=== PATIENT | female | born 1950 | race Caucasian/White ===

== ENCOUNTER 2016-06-16 18:38 | Inpatient (IN) | payer MEDICARE, MEDICAID ==
[~2016-06-16] VITALS: Ht 144.8 cm; Wt 125.6 kg
[~2016-06-16 18:38] MED LIST: AMBIEN PO; DOCU-137 PO; GABA300C8 PO; GABA800T97 PO; HYDR-2598 PO; LIDO5DIS21 TOP; LISI10TA6 PO; METF-312 PO; OME20GT PO; PAROXETINE PO; TRIA50CA40 PO
[2016-06-16 19:11] LABS: Basophils # (auto) 0.1 uL; Basophils % (auto) 0.7 % (0.0-2.0); Eosinophils # (auto) 0.2 uL; Hematocrit 36.1 % (36.0-46.0); Hemoglobin 12.1 g/dL (12.2-16.2); Lymphocytes % (auto) 17.3 % (10.0-50.0); Mean Corpuscular Hemoglobin 30.4 pg (28.0-32.0); Mean Corpuscular Hgb Conc. 33.6 g/dL (32.0-36.0); Mean Corpuscular Volume 90.5 fL (80.0-100.0); Mean Platelet Volume 6.5 fL (7.4-10.4); Monocytes # (auto) 0.5 uL; Monocytes % (auto) 4.7 % (0.0-12.0); Neutrophils # (auto) 8.7 uL; Neutrophils % (auto) 75.3 % (37.0-80.0); Platelet Count (auto) 391 10^3/uL (140-450); Red Cell Distribution Width 13.4 % (11.6-16.0); White Blood Cell 11.6 10^3/uL (4.4-10.8)
[2016-06-16 19:36] LABS: Albumin 3.3 g/dL (3.4-5.0); Anion Gap 8 (5-15); Blood Urea Nitrogen 23 mg/dL (7-18); Calcium 8.8 mg/dL (8.5-10.1); Carbon Dioxide 28 mmol/L (21-32); Chloride 106 mmol/L (98-107); Glucose 140 mg/dL (74-106); Potassium 3.9 mmol/L (3.5-5.1); Sodium 142 mmol/L (136-145)
[2016-06-16 19:39] LABS: Aspartate Aminotransferase 11 U/L (15-37); GFR African American 61 mL/min; GFR Non-African American 50 mL/min
[2016-06-16 19:44] LABS: Alkaline Phosphatase 93 U/L (45-117); Bilirubin, Total 0.5 mg/dL (0.2-1.0); Total Protein 7.4 g/dL (6.4-8.2)
[2016-06-16 21:02] LABS: Urine RBC None Seen /hpf (0 - 4)
[2016-06-16 21:14] LABS: Urine Bilirubin Negative (Negative); Urine Blood Negative /uL (Negative); Urine Color Yellow (Yellow); Urine Glucose Normal (Normal); Urine Ketone Negative (Negative); Urine Nitrite Negative (Negative); Urine Urobilinogen Normal (Negative)
[2016-06-17] MEDS ORDERED: cefTRIAXone 1GM/50ML D5W 50 ML IV ONE (06:45)
[2016-06-17] MEDS ORDERED: metroNIDAZOLE 500MG/100ML 100 ML IV ONE (06:45)
[2016-06-17] MEDS ORDERED: HYDROmorphone HCL 2 MG/ML VL IV ONE (07:15)
[2016-06-17] MEDS ORDERED: ONDANSETRON HCL 4 MG/2 ML VIAL IV ONE (07:15)
[2016-06-17] MEDS ORDERED: DEXTROSE (50%) 50ML SYRG IV PRN (07:30)
[2016-06-17] MEDS ORDERED: ACETAMINOPHEN 325 MG TAB PO PRN (07:30)
[2016-06-17] MEDS ORDERED: MORPHINE SULF INJ 2 MG/ML SYRINGE 1ML IV PRN (07:30)
[2016-06-17 08:38] VITALS: BP 132/51
[2016-06-17] MEDS: METOPROLOL SUCCINATE XL 50 MG TAB PO SCH (09:05)
[2016-06-17] MEDS: ENOXAPARIN SOD 40 MG/0.4 ML SYRINGE SC SCH (09:32)
[2016-06-17] MEDS: PANTOPRAZOLE SODIUM 40 MG/10 ML VIAL IV SCH (09:32)
[2016-06-17] MEDS ORDERED: FUROSEMIDE 40 MG TAB PO SCH (10:00)
[2016-06-17] MEDS ORDERED: POTASSIUM CHL 10 Meq TABLET PO SCH (10:00)
[2016-06-17] MEDS: ACCU-CHEK COMFORT CURVE STRIP VI SCH ×2 (11:11→17:58)
[2016-06-17] MEDS: InsuLIN REG 1unit/0.01ml Soln (100units/ml) SC SCH ×2 (11:13→17:59)
[2016-06-17 12:30] VITALS: BP 146/83
[2016-06-17] MEDS: HYDROcodone-ACET 5/325MG TAB PO PRN (14:10)
[2016-06-17] MEDS: HYDROmorphone HCL 2 MG/ML VL IV PRN ×2 (14:40→20:01)
[2016-06-17] MEDS: SODIUM CHLORIDE 0.9% 1,000 ML IV SCH (16:14)
[2016-06-17 16:45] VITALS: BP 126/65
[2016-06-17] MEDS: metroNIDAZOLE 500MG/100ML 100 ML IV SCH (17:31)
[2016-06-17 20:00] VITALS: BP 116/59
[2016-06-17] MEDS: ATORVASTATIN 20 MG TAB PO SCH (21:38)
[2016-06-17 21:46] VITALS: BP 116/59
[2016-06-18] MEDS: ACCU-CHEK COMFORT CURVE STRIP VI SCH ×5 (00:09→23:34)
[2016-06-18] MEDS: metroNIDAZOLE 500MG/100ML 100 ML IV SCH ×4 (00:09→23:34)
[2016-06-18] MEDS: HYDROmorphone HCL 2 MG/ML VL IV PRN ×4 (01:04→21:26)
[2016-06-18 03:42] VITALS: BP 116/99
[2016-06-18] MEDS: SODIUM CHLORIDE 0.9% 1,000 ML IV SCH ×2 (05:14→16:44)
[2016-06-18 05:24] VITALS: BP 109/58
[2016-06-18 05:41] LABS: Basophils # (auto) 0 uL; Basophils % (auto) 0.3 % (0.0-2.0); Eosinophils # (auto) 0.2 uL; Eosinophils % (auto) 2.6 % (0.0-7.0); Hematocrit 31.4 % (36.0-46.0); Hemoglobin 10.5 g/dL (12.2-16.2); Lymphocytes # (auto) 1.1 uL; Lymphocytes % (auto) 13.9 % (10.0-50.0); Mean Corpuscular Hemoglobin 30.4 pg (28.0-32.0); Mean Corpuscular Hgb Conc. 33.4 g/dL (32.0-36.0); Mean Platelet Volume 6.6 fL (7.4-10.4); Monocytes # (auto) 0.7 uL; Monocytes % (auto) 8.7 % (0.0-12.0); Neutrophils % (auto) 74.5 % (37.0-80.0); Platelet Count (auto) 326 10^3/uL (140-450); Red Cell Distribution Width 13.7 % (11.6-16.0); White Blood Cell 8.1 10^3/uL (4.4-10.8)
[2016-06-18] MEDS: InsuLIN REG 1unit/0.01ml Soln (100units/ml) SC SCH ×5 (06:00→23:34)
[2016-06-18 06:14] LABS: BUN/Creatinine Ratio 21.4; Calcium 8.2 mg/dL (8.5-10.1); Potassium 3.9 mmol/L (3.5-5.1)
[2016-06-18] MEDS: cefTRIAXone 1GM/50ML D5W 50 ML IV SCH (06:34)
[2016-06-18 09:00] VITALS: BP 143/78
[2016-06-18] MEDS: METOPROLOL SUCCINATE XL 50 MG TAB PO SCH (10:00)
[2016-06-18] MEDS: PANTOPRAZOLE SODIUM 40 MG/10 ML VIAL IV SCH (10:42)
[2016-06-18] MEDS: ENOXAPARIN SOD 40 MG/0.4 ML SYRINGE SC SCH (10:42)
[2016-06-18 13:00] VITALS: BP 104/49
[2016-06-18 17:00] VITALS: BP 149/74
[2016-06-18] MEDS: ONDANSETRON HCL 4 MG/2 ML VIAL IV PRN ×2 (17:00→21:26)
[2016-06-18] MEDS: ATORVASTATIN 20 MG TAB PO SCH (21:30)
[2016-06-18 22:00] VITALS: BP 143/93
[2016-06-18] MEDS: ZOLPIDEM TARTRATE 5 MG TAB PO PRN (23:36)
[2016-06-19] MEDS: ONDANSETRON HCL 4 MG/2 ML VIAL IV PRN ×5 (01:28→20:34)
[2016-06-19] MEDS: HYDROmorphone HCL 2 MG/ML VL IV PRN ×5 (01:28→20:34)
[2016-06-19] MEDS: SODIUM CHLORIDE 0.9% 1,000 ML IV SCH (04:50)
[2016-06-19 05:00] VITALS: BP 137/78
[2016-06-19] MEDS: InsuLIN REG 1unit/0.01ml Soln (100units/ml) SC SCH ×4 (05:57→21:01)
[2016-06-19] MEDS: ACCU-CHEK COMFORT CURVE STRIP VI SCH ×3 (05:57→17:36)
[2016-06-19 06:14] LABS: Basophils # (auto) 0 uL; Basophils % (auto) 0.3 % (0.0-2.0); Eosinophils # (auto) 0.2 uL; Eosinophils % (auto) 3.7 % (0.0-7.0); Hematocrit 31.6 % (36.0-46.0); Hemoglobin 10.3 g/dL (12.2-16.2); Lymphocytes # (auto) 1.4 uL; Lymphocytes % (auto) 23.5 % (10.0-50.0); Mean Corpuscular Hemoglobin 30.3 pg (28.0-32.0); Mean Corpuscular Hgb Conc. 32.6 g/dL (32.0-36.0); Mean Corpuscular Volume 92.9 fL (80.0-100.0); Mean Platelet Volume 6.5 fL (7.4-10.4); Monocytes # (auto) 0.4 uL; Monocytes % (auto) 6.8 % (0.0-12.0); Neutrophils # (auto) 3.8 uL; Neutrophils % (auto) 65.7 % (37.0-80.0); Platelet Count (auto) 276 10^3/uL (140-450); Red Cell Distribution Width 13.3 % (11.6-16.0); White Blood Cell 5.9 10^3/uL (4.4-10.8)
[2016-06-19] MEDS: cefTRIAXone 1GM/50ML D5W 50 ML IV SCH (06:35)
[2016-06-19 07:03] LABS: Calcium 8.4 mg/dL (8.5-10.1); Potassium 4.2 mmol/L (3.5-5.1)
[2016-06-19] MEDS: metroNIDAZOLE 500MG/100ML 100 ML IV SCH ×2 (07:39→16:59)
[2016-06-19] MEDS ORDERED: GASTROGRAFIN 30 ML SOL ONE ×2 (08:35)
[2016-06-19] MEDS ORDERED: PPN PER PHARMACY 0 ML IV SCH (08:45)
[2016-06-19 09:00] VITALS: BP 158/74
[2016-06-19 09:25] LABS: Magnesium 2.2 mg/dL (1.6-2.6); Phosphorus 2.9 mg/dL (2.5-4.90)
[2016-06-19] MEDS: METOPROLOL SUCCINATE XL 50 MG TAB PO SCH (10:00)
[2016-06-19] MEDS: PANTOPRAZOLE SODIUM 40 MG/10 ML VIAL IV SCH (10:18)
[2016-06-19] MEDS: ENOXAPARIN SOD 40 MG/0.4 ML SYRINGE SC SCH (10:19)
[2016-06-19 13:00] VITALS: BP 146/73
[2016-06-19 16:38] LABS: INR 1.08 (0.9-1.15); Prothrombin Time 11.1 sec (9.37-12.3)
[2016-06-19] MEDS ORDERED: CLINIMIX PER PHARMACY IV NR ×6 (20:00)
[2016-06-19] MEDS: ATORVASTATIN 20 MG TAB PO SCH (21:37)
[2016-06-19] MEDS: ZOLPIDEM TARTRATE 5 MG TAB PO PRN (21:38)
[2016-06-19] MEDS: HYDROcodone-ACET 5/325MG TAB PO PRN (21:38)
[2016-06-19 22:00] VITALS: BP 142/95
[2016-06-20] MEDS: metroNIDAZOLE 500MG/100ML 100 ML IV SCH ×3 (00:31→22:06)
[2016-06-20] MEDS: ONDANSETRON HCL 4 MG/2 ML VIAL IV PRN ×4 (00:56→20:41)
[2016-06-20] MEDS: HYDROmorphone HCL 2 MG/ML VL IV PRN ×4 (00:56→20:41)
[2016-06-20 05:03] VITALS: BP 136/97
[2016-06-20] MEDS: HYDROcodone-ACET 5/325MG TAB PO PRN (05:56)
[2016-06-20] MEDS: InsuLIN REG 1unit/0.01ml Soln (100units/ml) SC SCH ×3 (05:57→18:00)
[2016-06-20] MEDS: ACCU-CHEK COMFORT CURVE STRIP VI SCH ×4 (06:12→18:00)
[2016-06-20 06:28] LABS: Albumin 2.9 g/dL (3.4-5.0); BUN/Creatinine Ratio 12.4; Bilirubin, Total 0.3 mg/dL (0.2-1.0); Calcium 8.8 mg/dL (8.5-10.1); Phosphorus 2.6 mg/dL (2.5-4.90); Total Protein 6.7 g/dL (6.4-8.2)
[2016-06-20] MEDS: cefTRIAXone 1GM/50ML D5W 50 ML IV SCH (07:00)
[2016-06-20] MEDS ORDERED: LACTULOSE 20Gm/30ML SOLN PO PRN (08:15)
[2016-06-20] MEDS ORDERED: LACTULOSE 20Gm/30ML SOLN PO ONE (08:15)
[2016-06-20 08:20] VITALS: BP 141/54
[2016-06-20] MEDS ORDERED: LIDOCAINE 1% HCL (LOCAL ANESTH.) INJ 20ML MDV ID ONE (10:45)
[2016-06-20 11:00] VITALS: BP 165/82
[2016-06-20] MEDS: METOPROLOL SUCCINATE XL 50 MG TAB PO SCH (12:24)
[2016-06-20] MEDS: LISINOPRIL 10 MG TAB PO SCH (12:24)
[2016-06-20] MEDS: PANTOPRAZOLE SODIUM 40 MG/10 ML VIAL IV SCH (12:25)
[2016-06-20] MEDS: ENOXAPARIN SOD 40 MG/0.4 ML SYRINGE SC SCH (12:25)
[2016-06-20 16:54] VITALS: BP 133/92
[2016-06-20 20:00] VITALS: BP 130/57
[2016-06-20] MEDS ORDERED: PPN PER PHARMACY IV NR ×8 (20:00)
[2016-06-20 22:00] VITALS: BP 130/57
[2016-06-20] MEDS: SODIUM CHLOR 0.9% PF (SALINE LOCK) 10ML VIAL IV SCH (22:07)
[2016-06-20] MEDS: ATORVASTATIN 20 MG TAB PO SCH (22:07)
[2016-06-21] MEDS: ACCU-CHEK COMFORT CURVE STRIP VI SCH ×4 (00:14→17:40)
[2016-06-21] MEDS: HYDROmorphone HCL 2 MG/ML VL IV PRN ×5 (03:49→22:36)
[2016-06-21] MEDS: ONDANSETRON HCL 4 MG/2 ML VIAL IV PRN ×5 (03:50→22:37)
[2016-06-21 05:00] VITALS: BP 120/64
[2016-06-21] MEDS: metroNIDAZOLE 500MG/100ML 100 ML IV SCH ×3 (05:24→22:30)
[2016-06-21] MEDS: InsuLIN REG 1unit/0.01ml Soln (100units/ml) SC SCH ×4 (05:43→17:40)
[2016-06-21 06:31] LABS: Calcium 8.6 mg/dL (8.5-10.1); Potassium 3.6 mmol/L (3.5-5.1)
[2016-06-21 06:34] LABS: BUN/Creatinine Ratio 11.1
[2016-06-21 06:37] LABS: Bilirubin, Total 0.3 mg/dL (0.2-1.0); Phosphorus 2.7 mg/dL (2.5-4.90); Total Protein 6.6 g/dL (6.4-8.2)
[2016-06-21] MEDS: cefTRIAXone 1GM/50ML D5W 50 ML IV SCH (07:00)
[2016-06-21] MEDS: PANTOPRAZOLE SODIUM 40 MG/10 ML VIAL IV SCH (08:57)
[2016-06-21] MEDS: ENOXAPARIN SOD 40 MG/0.4 ML SYRINGE SC SCH (08:57)
[2016-06-21] MEDS: METOPROLOL SUCCINATE XL 50 MG TAB PO SCH (08:58)
[2016-06-21] MEDS: LISINOPRIL 10 MG TAB PO SCH (08:58)
[2016-06-21 09:00] VITALS: BP 103/59
[2016-06-21] MEDS: SODIUM CHLOR 0.9% PF (SALINE LOCK) 10ML VIAL IV SCH ×2 (10:00→22:32)
[2016-06-21 13:00] VITALS: BP 148/75
[2016-06-21 17:15] VITALS: BP 152/89
[2016-06-21 20:00] VITALS: BP 122/60
[2016-06-21] MEDS ORDERED: PPN PER PHARMACY IV NR ×9 (20:00)
[2016-06-21 22:00] VITALS: BP 127/60
[2016-06-21] MEDS: ATORVASTATIN 20 MG TAB PO SCH (22:33)
[2016-06-22] VITALS (8 sets, daily range): BP systolic 110–143; BP diastolic 55–79
[2016-06-22] MEDS: ACCU-CHEK COMFORT CURVE STRIP VI SCH ×5 (00:32→22:20)
[2016-06-22] MEDS: HYDROmorphone HCL 2 MG/ML VL IV PRN ×3 (05:43→14:13)
[2016-06-22] MEDS: ONDANSETRON HCL 4 MG/2 ML VIAL IV PRN ×4 (05:43→22:20)
[2016-06-22] MEDS: metroNIDAZOLE 500MG/100ML 100 ML IV SCH ×3 (05:48→22:01)
[2016-06-22] MEDS: cefTRIAXone 1GM/50ML D5W 50 ML IV SCH (06:40)
[2016-06-22] MEDS: InsuLIN REG 1unit/0.01ml Soln (100units/ml) SC SCH ×5 (06:42→22:20)
[2016-06-22 06:43] LABS: Albumin 2.7 g/dL (3.4-5.0); BUN/Creatinine Ratio 12.2; Bilirubin, Total 0.2 mg/dL (0.2-1.0); Calcium 8.8 mg/dL (8.5-10.1); Magnesium 1.9 mg/dL (1.6-2.6); Phosphorus 3.1 mg/dL (2.5-4.90); Potassium 3.8 mmol/L (3.5-5.1); Total Protein 6.3 g/dL (6.4-8.2)
[2016-06-22] MEDS: METOPROLOL SUCCINATE XL 50 MG TAB PO SCH (09:46)
[2016-06-22] MEDS: LISINOPRIL 10 MG TAB PO SCH (09:47)
[2016-06-22] MEDS: PANTOPRAZOLE SODIUM 40 MG/10 ML VIAL IV SCH (09:47)
[2016-06-22] MEDS: ENOXAPARIN SOD 40 MG/0.4 ML SYRINGE SC SCH (09:47)
[2016-06-22] MEDS: SODIUM CHLOR 0.9% PF (SALINE LOCK) 10ML VIAL IV SCH ×2 (09:47→22:01)
[2016-06-22] MEDS: HYDROcodone-ACET 5/325MG TAB PO PRN ×2 (11:33→16:59)
[2016-06-22] MEDS ORDERED: TPN PER PHARMACY 0 ML IV SCH (11:45)
[2016-06-22] MEDS ORDERED: TPN PER PHARMACY IV NR ×10 (20:00)
[2016-06-22] MEDS: ATORVASTATIN 20 MG TAB PO SCH (22:01)
[2016-06-22] MEDS: ZOLPIDEM TARTRATE 5 MG TAB PO PRN (22:20)
[2016-06-23] MEDS: metroNIDAZOLE 500MG/100ML 100 ML IV SCH ×3 (05:14→22:24)
[2016-06-23] MEDS: ACCU-CHEK COMFORT CURVE STRIP VI SCH ×3 (05:37→17:38)
[2016-06-23] MEDS: InsuLIN REG 1unit/0.01ml Soln (100units/ml) SC SCH ×3 (05:37→17:38)
[2016-06-23 05:59] VITALS: BP 166/95
[2016-06-23 06:39] LABS: Albumin 2.8 g/dL (3.4-5.0); BUN/Creatinine Ratio 14.4; Bilirubin, Total 0.2 mg/dL (0.2-1.0); Calcium 8.8 mg/dL (8.5-10.1); Magnesium 1.9 mg/dL (1.6-2.6); Potassium 4.4 mmol/L (3.5-5.1); Total Protein 6.5 g/dL (6.4-8.2)
[2016-06-23] MEDS: cefTRIAXone 1GM/50ML D5W 50 ML IV SCH (06:58)
[2016-06-23 08:19] VITALS: BP 131/76
[2016-06-23] MEDS: SODIUM CHLOR 0.9% PF (SALINE LOCK) 10ML VIAL IV SCH ×2 (09:19→22:24)
[2016-06-23] MEDS: ENOXAPARIN SOD 40 MG/0.4 ML SYRINGE SC SCH (09:19)
[2016-06-23] MEDS: PANTOPRAZOLE SODIUM 40 MG/10 ML VIAL IV SCH (09:19)
[2016-06-23] MEDS: LISINOPRIL 10 MG TAB PO SCH (09:20)
[2016-06-23] MEDS: METOPROLOL SUCCINATE XL 50 MG TAB PO SCH (09:20)
[2016-06-23] MEDS: HYDROcodone-ACET 5/325MG TAB PO PRN ×2 (09:20→22:24)
[2016-06-23 11:53] VITALS: BP 148/81
[2016-06-23 16:20] VITALS: BP 135/77
[2016-06-23 20:00] VITALS: BP 138/69
[2016-06-23] MEDS ORDERED: TPN PER PHARMACY IV NR ×9 (20:00)
[2016-06-23 22:00] VITALS: BP 138/69
[2016-06-23] MEDS: ATORVASTATIN 20 MG TAB PO SCH (22:23)
[2016-06-24] VITALS (7 sets, daily range): BP systolic 107–155; BP diastolic 46–91
[2016-06-24] MEDS: ACCU-CHEK COMFORT CURVE STRIP VI SCH ×4 (00:39→18:12)
[2016-06-24] MEDS: InsuLIN REG 1unit/0.01ml Soln (100units/ml) SC SCH ×4 (06:00→18:00)
[2016-06-24] MEDS: metroNIDAZOLE 500MG/100ML 100 ML IV SCH ×3 (06:53→21:29)
[2016-06-24] MEDS: ONDANSETRON HCL 4 MG/2 ML VIAL IV PRN (06:55)
[2016-06-24] MEDS: cefTRIAXone 1GM/50ML D5W 50 ML IV SCH (07:31)
[2016-06-24] MEDS: SOD CHL 0.9%/ KCL 20MEQ 1,000 ML IV SCH ×2 (09:45→10:07)
[2016-06-24] MEDS: SODIUM CHLOR 0.9% PF (SALINE LOCK) 10ML VIAL IV SCH ×2 (10:06→21:29)
[2016-06-24] MEDS: ENOXAPARIN SOD 40 MG/0.4 ML SYRINGE SC SCH (10:06)
[2016-06-24] MEDS: PANTOPRAZOLE SODIUM 40 MG/10 ML VIAL IV SCH (10:06)
[2016-06-24] MEDS: LISINOPRIL 10 MG TAB PO SCH (10:07)
[2016-06-24] MEDS: METOPROLOL SUCCINATE XL 50 MG TAB PO SCH (10:07)
[2016-06-24] MEDS: PROMETHAZINE HCL 25 MG/ML 1ML IV PRN ×2 (14:40→19:00)
[2016-06-24] MEDS: HYDROmorphone HCL 2 MG/ML VL IV PRN (21:30)
[2016-06-24] MEDS: ATORVASTATIN 20 MG TAB PO SCH (21:30)
[2016-06-25] MEDS: ACCU-CHEK COMFORT CURVE STRIP VI SCH ×5 (00:10→23:53)
[2016-06-25] MEDS: PROMETHAZINE HCL 25 MG/ML 1ML IV PRN ×5 (00:11→22:43)
[2016-06-25] MEDS: SOD CHL 0.9%/ KCL 20MEQ 1,000 ML IV SCH ×2 (00:31→12:41)
[2016-06-25] MEDS: HYDROcodone-ACET 5/325MG TAB PO PRN ×2 (02:20→19:49)
[2016-06-25] MEDS: HYDROmorphone HCL 2 MG/ML VL IV PRN ×4 (04:20→22:43)
[2016-06-25 05:00] VITALS: BP 113/70
[2016-06-25] MEDS: InsuLIN REG 1unit/0.01ml Soln (100units/ml) SC SCH ×5 (05:55→23:53)
[2016-06-25] MEDS: metroNIDAZOLE 500MG/100ML 100 ML IV SCH ×3 (05:55→22:43)
[2016-06-25] MEDS: cefTRIAXone 1GM/50ML D5W 50 ML IV SCH (06:44)
[2016-06-25 09:00] VITALS: BP 134/70
[2016-06-25] MEDS: SODIUM CHLOR 0.9% PF (SALINE LOCK) 10ML VIAL IV SCH ×2 (10:07→22:43)
[2016-06-25] MEDS: METOPROLOL SUCCINATE XL 50 MG TAB PO SCH (10:07)
[2016-06-25] MEDS: LISINOPRIL 10 MG TAB PO SCH (10:08)
[2016-06-25] MEDS: PANTOPRAZOLE SODIUM 40 MG/10 ML VIAL IV SCH (10:08)
[2016-06-25] MEDS: ENOXAPARIN SOD 40 MG/0.4 ML SYRINGE SC SCH (10:08)
[2016-06-25] MEDS: PARoxetine 20 MG TAB PO SCH (10:42)
[2016-06-25 13:00] VITALS: BP 154/77
[2016-06-25 16:59] VITALS: BP 130/63
[2016-06-25 22:00] VITALS: BP 115/53
[2016-06-25] MEDS: ATORVASTATIN 20 MG TAB PO SCH (22:44)
[2016-06-26] MEDS: SOD CHL 0.9%/ KCL 20MEQ 1,000 ML IV SCH (02:56)
[2016-06-26] MEDS: HYDROmorphone HCL 2 MG/ML VL IV PRN (02:57)
[2016-06-26] MEDS: PROMETHAZINE HCL 25 MG/ML 1ML IV PRN (02:58)
[2016-06-26 04:55] VITALS: BP 140/73
[2016-06-26] MEDS: metroNIDAZOLE 500MG/100ML 100 ML IV SCH (05:18)
[2016-06-26] MEDS: InsuLIN REG 1unit/0.01ml Soln (100units/ml) SC SCH ×2 (05:25→11:55)
[2016-06-26] MEDS: ACCU-CHEK COMFORT CURVE STRIP VI SCH ×2 (05:25→11:56)
[2016-06-26] MEDS: cefTRIAXone 1GM/50ML D5W 50 ML IV SCH (06:16)
[2016-06-26 07:37] LABS: Basophils # (auto) 0 uL; Basophils % (auto) 0.6 % (0.0-2.0); Eosinophils # (auto) 0.3 uL; Eosinophils % (auto) 3.7 % (0.0-7.0); Hematocrit 32.1 % (36.0-46.0); Hemoglobin 10.7 g/dL (12.2-16.2); Lymphocytes % (auto) 27.7 % (10.0-50.0); Mean Corpuscular Hemoglobin 30.8 pg (28.0-32.0); Mean Corpuscular Hgb Conc. 33.4 g/dL (32.0-36.0); Mean Corpuscular Volume 92.4 fL (80.0-100.0); Monocytes # (auto) 0.5 uL; Neutrophils # (auto) 4.4 uL; Platelet Count (auto) 288 10^3/uL (140-450); Red Cell Distribution Width 13.8 % (11.6-16.0); White Blood Cell 7.2 10^3/uL (4.4-10.8)
[2016-06-26 07:41] LABS: BUN/Creatinine Ratio 14.3; Calcium 8.1 mg/dL (8.5-10.1); Potassium 3.9 mmol/L (3.5-5.1)
[2016-06-26] MEDS ORDERED: METR500T PO (08:42)
[2016-06-26] MEDS ORDERED: HYDROcodone-ACET 5/325MG TAB PO PRN (08:45)
[2016-06-26] MEDS ORDERED: ZOLPIDEM TARTRATE 5 MG TAB PO PRN (08:45)
[2016-06-26] MEDS ORDERED: HYDROmorphone HCL 2 MG/ML VL IV PRN (08:45)
[2016-06-26] MEDS ORDERED: LEVO-28 PO (08:48)
[2016-06-26 09:00] VITALS: BP 145/57
[2016-06-26] MEDS ORDERED: LEVOFLOXACIN 500 MG TAB PO SCH ×2 (09:00→10:00)
[2016-06-26] MEDS ORDERED: metroNIDAZOLE 500 MG TAB PO ONE (09:00)
[2016-06-26] MEDS ORDERED: ENOXAPARIN SOD 40 MG/0.4 ML SYRINGE SC SCH (10:00)
[2016-06-26 10:33] VITALS: BP 134/70
[2016-06-26] MEDS: LISINOPRIL 10 MG TAB PO SCH (10:44)
[2016-06-26] MEDS: PARoxetine 20 MG TAB PO SCH (10:45)
[2016-06-26] MEDS: METOPROLOL SUCCINATE XL 50 MG TAB PO SCH (10:47)
[2016-06-26] MEDS: PANTOPRAZOLE SODIUM 40 MG/10 ML VIAL IV SCH (10:48)
[2016-06-26] MEDS: SODIUM CHLOR 0.9% PF (SALINE LOCK) 10ML VIAL IV SCH (11:56)
[2016-06-26 13:00] VITALS: BP 117/75
[2016-06-26] MEDS ORDERED: PAR20T PO (13:05)
[2016-06-26] MEDS ORDERED: metroNIDAZOLE 500 MG TAB PO SCH (14:00)
== END 2016-06-26 17:00 | disposition home or self-care (01) | DRG 683 ==
LOC: ER 18:41 → EDUNIT# 18:42 → EAST 18:42 → WEST WING 06-17 11:34
PROVIDERS: ADMIT Internal Medicine; ATTEND Internal Medicine
PROC: 5A09457 Assistance with Respiratory Ventilation, 24-96 Consecutive Hours, Continuous Positive Airway Pressure (ICD-10-PCS; 2016-06-16)
PROC: 02HV33Z Insertion of Infusion Device into Superior Vena Cava, Percutaneous Approach (ICD-10-PCS; principal; 2016-06-20)
PROC: 3E0436Z Introduction of Nutritional Substance into Central Vein, Percutaneous Approach (ICD-10-PCS; 2016-06-20)
DX: N17.9 Acute kidney failure, unspecified (principal); K57.32 Diverticulitis of large intestine without perforation or abscess without bleeding; N39.0 Urinary tract infection, site not specified; E44.1 Mild protein-calorie malnutrition; Z68.43 Body mass index [BMI] 50.0-59.9, adult; E11.22 Type 2 diabetes mellitus with diabetic chronic kidney disease; E78.5 Hyperlipidemia, unspecified; I12.9 Hypertensive chronic kidney disease with stage 1 through stage 4 chronic kidney disease, or unspecified chronic kidney disease; D72.825 Bandemia; E66.01 Morbid (severe) obesity due to excess calories; G47.30 Sleep apnea, unspecified; K59.00 Constipation, unspecified; K66.8 Other specified disorders of peritoneum; N18.9 Chronic kidney disease, unspecified; Z90.49 Acquired absence of other specified parts of digestive tract
CPT/HCPCS: 36415; 71010; 74176; 80048; 80053; 81001; 82040; 82962; 83735; 84100; 84478; 84484; 85025; 85610; 87086; 93005; 94660; 96365; 96367; 96375; C9113; J0696; J1815; J2405; J3490

== ENCOUNTER 2016-08-18 08:51 | Day surgery (SDC) | payer MEDICARE, MEDICAID ==
[2016-08-14 10:59] LABS: Basophils # (auto) 0 uL; Basophils % (auto) 0.2 % (0.0-2.0); Eosinophils # (auto) 0.2 uL; Eosinophils % (auto) 1.6 % (0.0-7.0); Hematocrit 33.8 % (36.0-46.0); Hemoglobin 11.4 g/dL (12.2-16.2); Lymphocytes # (auto) 2.2 uL; Lymphocytes % (auto) 21.5 % (10.0-50.0); Mean Corpuscular Hemoglobin 30.5 pg (28.0-32.0); Mean Corpuscular Hgb Conc. 33.7 g/dL (32.0-36.0); Mean Corpuscular Volume 90.5 fL (80.0-100.0); Mean Platelet Volume 6.1 fL (7.4-10.4); Monocytes # (auto) 0.5 uL; Monocytes % (auto) 5.1 % (0.0-12.0); Neutrophils # (auto) 7.4 uL; Neutrophils % (auto) 71.6 % (37.0-80.0); Platelet Count (auto) 355 10^3/uL (140-450); White Blood Cell 10.3 10^3/uL (4.4-10.8)
[2016-08-14 11:24] LABS: INR 0.93 (0.9-1.15); Partial Thromboplastin Time 26.8 sec (22.64-33.71)
[~2016-08-18] VITALS: Ht 144.8 cm; Wt 81.6 kg
[~2016-08-18 08:51] MED LIST changes: +ATOR20TA PO; -DOCU-137 PO; +FURO40TA PO; -GABA300C8 PO; +GABA600T PO; -GABA800T97 PO; -HYDR-2598 PO; -LIDO5DIS21 TOP; -METF-312 PO; +METF-370 PO; +METO-169 PO; -OME20GT PO; +PANT40TA2 PO; +POTA10TA51 PO
[2016-08-18] MEDS ORDERED: LIDOCAINE VISCOUS 2% 15ML UD ONE (09:26)
[2016-08-18] MEDS ORDERED: SODIUM CHLORIDE LOCK 10 ML ONE (09:26)
[2016-08-18] MEDS ORDERED: diphenhdrAMINE HCL 50 MG/1 ML VL ONE (09:27)
[2016-08-18] MEDS ORDERED: ONDANSETRON HCL 4 MG/2 ML VIAL ONE (09:44)
[2016-08-18] MEDS ORDERED: ONDANSETRON HCL 4 MG/2 ML VIAL IV ONE (09:50)
[2016-08-18] MEDS: fentaNYL CITRATE 100 MCG/2 ML VL ONE ×4 (09:57→10:10)
[2016-08-18] MEDS: MIDAZOLAM HCL 5 MG/ML-1ML VIAL ONE ×4 (09:57→10:10)
[2016-08-18 10:50] VITALS: BP 103/63
== END 2016-08-18 11:00 | disposition home or self-care (01) ==
LOC: GI 08:51
PROVIDERS: ATTEND Internal Medicine Gastroenterology
DX: Z12.11 Encounter for screening for malignant neoplasm of colon (principal); K57.30 Diverticulosis of large intestine without perforation or abscess without bleeding; Z80.0 Family history of malignant neoplasm of digestive organs; K29.60 Other gastritis without bleeding; I20.9 Angina pectoris, unspecified; I50.9 Heart failure, unspecified; J44.9 Chronic obstructive pulmonary disease, unspecified; G47.30 Sleep apnea, unspecified; E66.9 Obesity, unspecified; E11.9 Type 2 diabetes mellitus without complications; F31.9 Bipolar disorder, unspecified; F41.0 Panic disorder [episodic paroxysmal anxiety]; F41.9 Anxiety disorder, unspecified; F32.9 Major depressive disorder, single episode, unspecified; Z90.49 Acquired absence of other specified parts of digestive tract
CPT/HCPCS: 36415; 43239; 45378; 82962; 85025; 85610; 85730; 88305; 88342; G0105; J1200; J2250; J2405; J3010; J7030

== ENCOUNTER → 2016-11-07 | Outpatient (CLI) | payer MEDICARE, MEDICAID ==
[2016-11-07 11:31] LABS: BUN/Creatinine Ratio 12.2; Calcium 9.2 mg/dL (8.5-10.1); Potassium 3.5 mmol/L (3.5-5.1)
== END | disposition home or self-care (01) ==
LOC: LAB 10:45
PROVIDERS: ATTEND Family Medicine
DX: E11.9 Type 2 diabetes mellitus without complications (principal)
CPT/HCPCS: 36415; 80048; 83036

== ENCOUNTER 2016-12-08 02:52 | Emergency (ER) | payer MEDICARE, MEDICAID ==
[~2016-12-08] VITALS: Ht 157.5 cm; Wt 89.8 kg
[2016-12-08] MEDS ORDERED: SODIUM CHLORIDE 0.9% 250 ML IV ONE (02:57)
[2016-12-08] MEDS ORDERED: ONDANSETRON HCL 4 MG/2 ML VIAL IV ONE (03:00)
[2016-12-08] MEDS ORDERED: HYDROmorphone HCL 2 MG/ML VL IV ONE ×2 (03:00→04:30)
[2016-12-08 03:23] LABS: Basophils # (auto) 0.1 uL; Basophils % (auto) 0.8 % (0.0-2.0); CONDITION Y; Eosinophils # (auto) 0.3 uL; Eosinophils % (auto) 2.7 % (0.0-7.0); Hematocrit 39.8 % (36.0-46.0); Hemoglobin 13.4 g/dL (12.2-16.2); Lymphocytes % (auto) 26.7 % (10.0-50.0); Mean Corpuscular Hemoglobin 31.5 pg (28.0-32.0); Mean Corpuscular Hgb Conc. 33.7 g/dL (32.0-36.0); Mean Corpuscular Volume 93.5 fL (80.0-100.0); Mean Platelet Volume 7.2 fL (7.4-10.4); Monocytes # (auto) 0.6 uL; Monocytes % (auto) 5.2 % (0.0-12.0); Neutrophils # (auto) 7.2 uL; Neutrophils % (auto) 64.6 % (37.0-80.0); Platelet Count (auto) 370 10^3/uL (140-450); Red Cell Distribution Width 13.8 % (11.6-16.0); White Blood Cell 11.1 10^3/uL (4.4-10.8)
[2016-12-08 03:43] LABS: Albumin 3.5 g/dL (3.4-5.0); BUN/Creatinine Ratio 16.1; Calcium 8.5 mg/dL (8.5-10.1); Potassium 3.6 mmol/L (3.5-5.1)
[2016-12-08 03:45] LABS: Bilirubin, Total 0.3 mg/dL (0.2-1.0); Total Protein 7.6 g/dL (6.4-8.2)
[2016-12-08 03:50] LABS: Urine Bilirubin Negative (Negative); Urine Blood TRACE /uL (Negative); Urine Color Yellow (Yellow); Urine Glucose Normal (Normal); Urine Ketone Negative (Negative); Urine Mucus FEW (None Seen); Urine Nitrite Negative (Negative); Urine RBC 6 /hpf (0 - 4); Urine Squamous Epithelial Cell FEW /hpf (<5)
[2016-12-08] MEDS ORDERED: cefTRIAXone SOD 1,000 MG VL IV ONE (05:15)
[2016-12-08 06:31] VITALS: BP 95/54
== END 2016-12-08 06:49 | disposition home or self-care (01) ==
LOC: EDBD 02:52 → ER 02:52
DX: N39.0 Urinary tract infection, site not specified (principal); I12.9 Hypertensive chronic kidney disease with stage 1 through stage 4 chronic kidney disease, or unspecified chronic kidney disease; N18.9 Chronic kidney disease, unspecified; E11.22 Type 2 diabetes mellitus with diabetic chronic kidney disease; E78.5 Hyperlipidemia, unspecified; Z79.899 Other long term (current) drug therapy
CPT/HCPCS: 36415; 74176; 80053; 81001; 82962; 85025; 94761; 96361; 96374; 96375; 96376; 99285; J0696; J1170; J2405; J7050

== ENCOUNTER → 2017-01-19 | Outpatient (CLI) | payer MEDICARE, MEDICAID ==
[~2017-01-19] MED LIST changes: -FURO40TA PO; -LISI10TA6 PO; -METO-169 PO; +ONDA4TAB8 SL; -POTA10TA51 PO; -TRIA50CA40 PO
[2017-01-19 12:13] LABS: BUN/Creatinine Ratio 20.6; Calcium 9.4 mg/dL (8.5-10.1); Potassium 3.5 mmol/L (3.5-5.1)
== END | disposition home or self-care (01) ==
LOC: LAB 10:58
PROVIDERS: ATTEND Nurse Practitioner
DX: E11.40 Type 2 diabetes mellitus with diabetic neuropathy, unspecified (principal)
CPT/HCPCS: 36415; 80048

== ENCOUNTER 2017-05-06 08:40 | Day surgery (SDC) | payer MEDICARE, MEDICAID ==
[2017-05-05 13:13] LABS: INR 0.91 (0.9-1.15); Partial Thromboplastin Time 28.7 sec (22.64-33.71); Prothrombin Time 9.9 sec (9.37-12.3)
[2017-05-05 13:23] LABS: Basophils # (auto) 0.1 uL; Basophils % (auto) 0.5 % (0.0-2.0); Eosinophils # (auto) 0.3 uL; Eosinophils % (auto) 2.5 % (0.0-7.0); Hematocrit 36.9 % (36.0-46.0); Hemoglobin 12.3 g/dL (12.2-16.2); Lymphocytes # (auto) 2.1 uL; Lymphocytes % (auto) 21.5 % (10.0-50.0); Mean Corpuscular Hemoglobin 30.5 pg (28.0-32.0); Mean Corpuscular Hgb Conc. 33.4 g/dL (32.0-36.0); Mean Corpuscular Volume 91.4 fL (80.0-100.0); Monocytes # (auto) 0.7 uL; Monocytes % (auto) 6.6 % (0.0-12.0); Neutrophils # (auto) 6.9 uL; Neutrophils % (auto) 68.9 % (37.0-80.0); Platelet Count (auto) 318 10^3/uL (140-450); Red Blood Cells 4.04 10^6/uL (4.0-5.20); Red Cell Distribution Width 14.5 % (11.8-14.3)
[2017-05-05 13:32] LABS: Potassium 4.3 mmol/L (3.5-5.1)
[2017-05-05 13:33] LABS: Albumin 3.5 g/dL (3.4-5.0); BUN/Creatinine Ratio 16.7; Bilirubin, Total 0.4 mg/dL (0.2-1.0); Calcium 8.3 mg/dL (8.5-10.1); Total Protein 7.5 g/dL (6.4-8.2)
[~2017-05-06] VITALS: Ht 144.8 cm; Wt 127.0 kg
[~2017-05-06 08:40] MED LIST changes: -AMBIEN PO; -ATOR20TA PO; -GABA600T PO; +LISI-646 PO; +NAP500T PO; -ONDA4TAB8 SL; -PANT40TA2 PO; +TRIA1SPR5; +TRIA50CA38 PO
[2017-05-06] MEDS ORDERED: ceFAZolin 1GM/50ML 50 ML IV ONE (09:39)
[2017-05-06] MEDS ORDERED: BUPIVACAINE 0.75% INJ 10ML MPV SDV IJ ONE (10:57)
[2017-05-06] MEDS ORDERED: ONDANSETRON HCL 4 MG/2 ML VIAL ONE (11:30)
[2017-05-06] MEDS ORDERED: MIDAZOLAM HCL 1MG/1ML-2 ML VIAL ONE (11:30)
[2017-05-06] MEDS ORDERED: PROPOFOL 10 MG/ML 20 ML IV ONE (11:30)
[2017-05-06] MEDS ORDERED: fentaNYL CITRATE 100 MCG/2 ML VL ONE (11:30)
[2017-05-06] MEDS ORDERED: SODIUM CHLORIDE LOCK 10 ML ONE (11:30)
[2017-05-06] MEDS ORDERED: METOCLOPRAMIDE HCL 5MG/ml INJ 2ml VIAL IV ONE (12:30)
[2017-05-06] MEDS ORDERED: HYDROmorphone HCL 2 MG/ML VL IV PRN (12:30)
[2017-05-06] MEDS ORDERED: ACCU-CHEK COMFORT CURVE STRIP VI ONE (12:30)
[2017-05-06 13:01] VITALS: BP 129/66
== END 2017-05-06 13:06 | disposition home or self-care (01) ==
LOC: EDUNIT# → SUR 08:40
PROVIDERS: ATTEND Podiatrist Foot & Ankle Surgery
DX: D17.24 Benign lipomatous neoplasm of skin and subcutaneous tissue of left leg (principal); D69.6 Thrombocytopenia, unspecified; E74.4 Disorders of pyruvate metabolism and gluconeogenesis; E11.22 Type 2 diabetes mellitus with diabetic chronic kidney disease; I12.9 Hypertensive chronic kidney disease with stage 1 through stage 4 chronic kidney disease, or unspecified chronic kidney disease; N18.2 Chronic kidney disease, stage 2 (mild); I20.9 Angina pectoris, unspecified; G47.33 Obstructive sleep apnea (adult) (pediatric); K21.9 Gastro-esophageal reflux disease without esophagitis; F32.9 Major depressive disorder, single episode, unspecified; M19.90 Unspecified osteoarthritis, unspecified site; E66.9 Obesity, unspecified; Z68.44 Body mass index [BMI] 60.0-69.9, adult; J44.9 Chronic obstructive pulmonary disease, unspecified; F41.9 Anxiety disorder, unspecified
CPT/HCPCS: 28041; 36415; 80053; 82962; 85025; 85610; 85730; 88304; J0690; J2250; J2405; J2704; J3010; J3490

== ENCOUNTER 2017-05-19 16:54 | Emergency (ER) | payer MEDICARE, MEDICAID ==
[~2017-05-19] VITALS: Ht 144.8 cm; Wt 127.0 kg
[2017-05-19 17:00] VITALS: BP 155/104
[2017-05-19 18:39] LABS: Basophils # (auto) 0.1 uL; Basophils % (auto) 0.8 % (0.0-2.0); Eosinophils # (auto) 0.3 uL; Eosinophils % (auto) 3.4 % (0.0-7.0); Hematocrit 37.5 % (36.0-46.0); Hemoglobin 12.4 g/dL (12.2-16.2); Lymphocytes # (auto) 2.4 uL; Lymphocytes % (auto) 25.5 % (10.0-50.0); Mean Corpuscular Hemoglobin 30.4 pg (28.0-32.0); Mean Corpuscular Hgb Conc. 33.1 g/dL (32.0-36.0); Mean Corpuscular Volume 91.8 fL (80.0-100.0); Monocytes # (auto) 0.6 uL; Monocytes % (auto) 6.1 % (0.0-12.0); Neutrophils % (auto) 64.2 % (37.0-80.0); Nucleated Red Blood Cells % 0.1 %; Platelet Count (auto) 342 10^3/uL (140-450); Red Blood Cells 4.09 10^6/uL (4.0-5.20); White Blood Cell 9.4 10^3/uL (4.4-10.8)
[2017-05-19 18:54] LABS: Chloride 106 mmol/L (98-107); Potassium 3.7 mmol/L (3.5-5.1); Sodium 138 mmol/L (136-145)
[2017-05-19 18:59] LABS: Albumin 3.4 g/dL (3.4-5.0); Anion Gap 9 (5-15); Aspartate Aminotransferase 16 U/L (15-37); BUN/Creatinine Ratio 20.2; Blood Urea Nitrogen 19 mg/dL (7-18); Carbon Dioxide 23 mmol/L (21-32); GFR African American 77 mL/min; GFR Non-African American 64 mL/min; Glucose 120 mg/dL (74-106)
[2017-05-19 19:04] LABS: Alanine Aminotransferase 25 U/L (13-56); Alkaline Phosphatase 98 U/L (45-117); Bilirubin, Total 0.3 mg/dL (0.2-1.0); Total Protein 7.6 g/dL (6.4-8.2)
[2017-05-19 19:04] LABS: Urine Bacteria NONE SEEN /hpf (None Seen); Urine Blood Negative /uL (Negative); Urine Specific Gravity 1.019 (1.001-1.035); Urine WBC 7 /hpf (0 - 5)
== END 2017-05-20 01:00 | disposition home or self-care (01) ==
LOC: ER 17:07
DX: N39.0 Urinary tract infection, site not specified (principal); I50.9 Heart failure, unspecified; I11.0 Hypertensive heart disease with heart failure; E11.9 Type 2 diabetes mellitus without complications; E78.5 Hyperlipidemia, unspecified; Z90.49 Acquired absence of other specified parts of digestive tract; Z98.51 Tubal ligation status
CPT/HCPCS: 36415; 71046; 80053; 81001; 84484; 85025; 93005

== ENCOUNTER → 2017-10-08 | Outpatient (CLI) | payer MEDICARE, MEDICAID ==
[2017-10-08 16:45] LABS: Basophils # (auto) 0 uL; Basophils % (auto) 0.4 % (0.0-2.0); Eosinophils # (auto) 0.3 uL; Eosinophils % (auto) 2.7 % (0.0-7.0); Hematocrit 38.4 % (36.0-46.0); Lymphocytes # (auto) 2.4 uL; Lymphocytes % (auto) 22.6 % (10.0-50.0); Mean Corpuscular Hemoglobin 29.8 pg (28.0-32.0); Mean Corpuscular Hgb Conc. 33.8 g/dL (32.0-36.0); Mean Corpuscular Volume 87.9 fL (80.0-100.0); Monocytes # (auto) 0.6 uL; Monocytes % (auto) 5.9 % (0.0-12.0); Neutrophils # (auto) 7.2 uL; Neutrophils % (auto) 68.4 % (37.0-80.0); Nucleated Red Blood Cells % 0.1 %; Platelet Count (auto) 340 10^3/uL (140-450); Red Blood Cells 4.37 10^6/uL (4.0-5.20); Red Cell Distribution Width 14.1 % (11.8-14.3); White Blood Cell 10.6 10^3/uL (4.4-10.8)
[2017-10-08 16:59] LABS: Urine Bacteria NONE SEEN /hpf (None Seen); Urine Blood Negative /uL (Negative); Urine Hyaline Cast FEW /lpf (0 - 2); Urine Specific Gravity 1.006 (1.001-1.035); Urine WBC 1 /hpf (0 - 5)
[2017-10-08 17:02] LABS: INR 0.93 (0.9-1.15)
[2017-10-08 17:14] LABS: Albumin 4.1 g/dL (3.4-5.0); BUN/Creatinine Ratio 18.6; Bilirubin, Total 0.4 mg/dL (0.2-1.0); Calcium 9.9 mg/dL (8.5-10.1); Potassium 3.2 mmol/L (3.5-5.1); Total Protein 8.2 g/dL (6.4-8.2)
== END | disposition home or self-care (01) ==
LOC: LAB 16:13
PROVIDERS: ATTEND Nurse Practitioner
DX: Z01.818 Encounter for other preprocedural examination (principal); I11.0 Hypertensive heart disease with heart failure; I50.9 Heart failure, unspecified; E78.5 Hyperlipidemia, unspecified; E11.9 Type 2 diabetes mellitus without complications; J44.9 Chronic obstructive pulmonary disease, unspecified
CPT/HCPCS: 36415; 80053; 81001; 85025; 85610; 85730

== ENCOUNTER 2018-05-09 04:05 | Emergency (ER) | payer MEDICARE, MEDICAID ==
[~2018-05-09] VITALS: Ht 162.6 cm; Wt 104.3 kg
[~2018-05-09 04:05] MED LIST changes: +ATOR20TA50; +BISA-4 PO; +CYAN1TAB14 PO; +CYCL1TAB18 PO; +FURO40TA PO; +FURO40TA4; +GABA300C10 PO; +HYDR-531 PO; +LISI10TA6; +METF-370; +METO-169; +MULTTAB75 PO; -NAP500T PO; +ONDA4TAB5 PO; +PANT40TA2 PO; +POTA-167; +POTA10TA51 PO; +TRAM50TA2 PO; -TRIA1SPR5; -TRIA50CA38 PO; +TRIA75TA55 PO; +ZINC50TA2 PO; +ZOLP10TA PO; +ZOLP5TAB5; +[UNRECOGNIZED DRUG - CODE]; +[UNRECOGNIZED DRUG - CODE] PO
[2018-05-09 07:27] VITALS: BP 105/71
== END 2018-05-09 07:34 | disposition home or self-care (01) ==
LOC: ER 04:05 → EDBD 04:05 → ER 07:34
DX: M19.90 Unspecified osteoarthritis, unspecified site (principal); M25.561 Pain in right knee; M54.9 Dorsalgia, unspecified; R10.9 Unspecified abdominal pain; E07.9 Disorder of thyroid, unspecified; E11.22 Type 2 diabetes mellitus with diabetic chronic kidney disease; I13.0 Hypertensive heart and chronic kidney disease with heart failure and stage 1 through stage 4 chronic kidney disease, or unspecified chronic kidney disease; N18.9 Chronic kidney disease, unspecified; I50.9 Heart failure, unspecified; E78.5 Hyperlipidemia, unspecified; Z79.84 Long term (current) use of oral hypoglycemic drugs; Z79.899 Other long term (current) drug therapy; Z90.49 Acquired absence of other specified parts of digestive tract; Z98.51 Tubal ligation status
CPT/HCPCS: 72131; 74176

== ENCOUNTER 2018-10-09 09:27 | Emergency (ER) | payer MEDICARE, MEDICAID ==
[~2018-10-09] VITALS: Ht 167.6 cm; Wt 113.4 kg
[2018-10-09 10:06] LABS: Basophils # (auto) 0 uL; Basophils % (auto) 0.6 % (0.0-2.0); Eosinophils # (auto) 0.2 uL; Eosinophils % (auto) 3.3 % (0.0-7.0); Hematocrit 36.6 % (36.0-46.0); Hemoglobin 12.1 g/dL (12.2-16.2); Lymphocytes # (auto) 1.7 uL; Lymphocytes % (auto) 27.6 % (10.0-50.0); Mean Corpuscular Hemoglobin 29.9 pg (28.0-32.0); Mean Corpuscular Volume 90.5 fL (80.0-100.0); Monocytes # (auto) 0.5 uL; Monocytes % (auto) 7.7 % (0.0-12.0); Neutrophils # (auto) 3.7 uL; Neutrophils % (auto) 60.8 % (37.0-80.0); Platelet Count (auto) 254 10^3/uL (140-450); Red Blood Cells 4.04 10^6/uL (4.0-5.20); White Blood Cell 6.1 10^3/uL (4.4-10.8)
[2018-10-09 10:24] LABS: Albumin 3.4 g/dL (3.4-5.0); Anion Gap 10 (5-15); BUN/Creatinine Ratio 21.2; Blood Urea Nitrogen 22 mg/dL (7-18); Calcium 8.5 mg/dL (8.5-10.1); Carbon Dioxide 25 mmol/L (21-32); Chloride 107 mmol/L (98-107); GFR African American 68 mL/min; GFR Non-African American 56 mL/min; Glucose 140 mg/dL (74-106); Potassium 3.5 mmol/L (3.5-5.1); Sodium 142 mmol/L (136-145)
[2018-10-09 10:29] LABS: Alanine Aminotransferase 19 U/L (13-56); Alkaline Phosphatase 85 U/L (45-117); Aspartate Aminotransferase 8 U/L (15-37); Bilirubin, Total 0.3 mg/dL (0.2-1.0)
[2018-10-09] MEDS ORDERED: diphenhdrAMINE HCL 50 MG/1 ML VL IM ONE (15:45)
[2018-10-09 15:51] VITALS: BP 154/80
== END 2018-10-09 16:03 | disposition home or self-care (01) ==
LOC: ER 09:27 → EDUNIT# 09:27 → EDBD 09:27 → ER 15:58
DX: F41.1 Generalized anxiety disorder (principal); E11.9 Type 2 diabetes mellitus without complications; I10 Essential (primary) hypertension; M19.90 Unspecified osteoarthritis, unspecified site; Z98.51 Tubal ligation status; Z90.49 Acquired absence of other specified parts of digestive tract; Z90.89 Acquired absence of other organs; Z79.899 Other long term (current) drug therapy
CPT/HCPCS: 36415; 71045; 80053; 81002; 83880; 84484; 85025; 96372; 99284; J1200

== ENCOUNTER 2019-10-07 10:41 | Day surgery (SDC) | payer MEDICARE, MEDICAID ==
[2019-10-05 15:15] LABS: Basophils # (auto) 0.1 10 ^3/uL (0-0.2); Basophils % (auto) 0.8 % (0.0-2.0); Eosinophils # (auto) 0.3 10 ^3/uL (0-0.8); Eosinophils % (auto) 3.1 % (0.0-7.0); Hematocrit 36.4 % (36.0-46.0); Hemoglobin 12.2 g/dL (12.2-16.2); Lymphocytes # (auto) 2.5 10 ^3/uL (0.4-5.4); Mean Corpuscular Hemoglobin 31.3 pg (28.0-32.0); Mean Corpuscular Hgb Conc. 33.6 g/dL (32.0-36.0); Mean Corpuscular Volume 93.1 fL (80.0-100.0); Monocytes # (auto) 0.5 10 ^3/uL (0-1.3); Monocytes % (auto) 6.3 % (0.0-12.0); Neutrophils # (auto) 5.1 10 ^3/uL (1.6-8.6); Neutrophils % (auto) 59.8 % (37.0-80.0); Nucleated Red Blood Cells % 0.1 %; Platelet Count (auto) 258 10^3/uL (140-450); Red Blood Cells 3.91 10^6/uL (4.0-5.20); Red Cell Distribution Width 13.7 % (11.8-14.3); White Blood Cell 8.5 10^3/uL (4.4-10.8)
[2019-10-05 15:39] LABS: INR 1.04 (0.9-1.15)
[~2019-10-07] VITALS: Ht 142.2 cm; Wt 127.0 kg
[~2019-10-07 10:41] MED LIST changes: +ALBUAER3 IN; +ASCO500T11 PO; -ATOR20TA50; -BISA-4 PO; +CARV6.2551 PO; +CETI10TA80 PO; -CYAN1TAB14 PO; -CYCL1TAB18 PO; +DICY10CA12 PO; +DOCU-94 PO; -FURO40TA PO; -FURO40TA4; +FURO40TA4 PO; +HYDR-4833 PO; -HYDR-531 PO; +LEVO-28 PO; -LISI10TA6; -METF-370; -METO-169; -MULTTAB75 PO; -ONDA4TAB5 PO; -POTA-167; +RIVA10TA PO; +ROSU10TA16 PO; -TRAM50TA2 PO; -TRIA75TA55 PO; -ZINC50TA2 PO; -ZOLP10TA PO; -ZOLP5TAB5; -[UNRECOGNIZED DRUG - CODE]; +[UNRECOGNIZED DRUG - CODE] PO; -[UNRECOGNIZED DRUG - CODE] PO
[2019-10-07] MEDS ORDERED: SODIUM CHLORIDE LOCK 10 ML ONE (10:54)
[2019-10-07] MEDS ORDERED: diphenhdrAMINE HCL 50 MG/1 ML VL ONE (10:55)
[2019-10-07] MEDS: fentaNYL CITRATE 100 MCG/2 ML VL ONE ×3 (12:37→12:45)
[2019-10-07] MEDS: MIDAZOLAM HCL 5 MG/ML-1ML VIAL ONE ×5 (12:37→12:51)
[2019-10-07 13:35] VITALS: BP 121/60
== END 2019-10-07 13:59 | disposition home or self-care (01) ==
LOC: GI 10:41
PROVIDERS: ATTEND Internal Medicine Gastroenterology
DX: R10.9 Unspecified abdominal pain (principal); K57.90 Diverticulosis of intestine, part unspecified, without perforation or abscess without bleeding; K64.8 Other hemorrhoids; K63.89 Other specified diseases of intestine; J45.909 Unspecified asthma, uncomplicated; Z98.890 Other specified postprocedural states; Z79.899 Other long term (current) drug therapy; Z11.59 Encounter for screening for other viral diseases
CPT/HCPCS: 36415; 45378; 82962; 85025; 85610; 85730; 87635; J2250; J3010; J7030; G0500

== ENCOUNTER → 2019-11-28 | Outpatient (CLI) | payer MEDICARE, MEDICAID | END | disposition home or self-care (01) | LOC: Rad HDHVI 15:02 | PROVIDERS: ATTEND Internal Medicine Cardiovascular Disease | DX: I08.1 Rheumatic disorders of both mitral and tricuspid valves (principal); I50.30 Unspecified diastolic (congestive) heart failure; E11.40 Type 2 diabetes mellitus with diabetic neuropathy, unspecified | CPT/HCPCS: 93306 ==

== ENCOUNTER → 2019-11-29 | Outpatient (CLI) | payer MEDICARE, MEDICAID ==
[~2019-11-29] VITALS: Ht 144.8 cm; Wt 124.3 kg
[~2019-11-29] MED LIST changes: +ADENOSINE 104 MG in GIVE UN-DILUTED 0 ML IV ONE; +ADENOSINE 90 MG/30 ML INJ IV ONE
== END | disposition home or self-care (01) ==
LOC: Rad HDHVI 08:39
PROVIDERS: ATTEND Internal Medicine Cardiovascular Disease
DX: Z01.810 Encounter for preprocedural cardiovascular examination (principal); R07.9 Chest pain, unspecified; I10 Essential (primary) hypertension; E78.00 Pure hypercholesterolemia, unspecified; E11.9 Type 2 diabetes mellitus without complications; Z82.49 Family history of ischemic heart disease and other diseases of the circulatory system
CPT/HCPCS: 78452; 93005; 96374; 96375; A9500; J0153

== ENCOUNTER → 2020-09-13 | Outpatient (CLI) | payer MEDICARE, MEDICAID ==
[~2020-09-13] MED LIST changes: -ADENOSINE 104 MG in GIVE UN-DILUTED 0 ML IV ONE; -ADENOSINE 90 MG/30 ML INJ IV ONE; -LISI-646 PO; +LISI20TA28 PO
[2020-09-13 10:47] LABS: Basophils # (auto) 0 10 ^3/uL (0-0.2); Basophils % (auto) 0.3 % (0.0-2.0); Eosinophils # (auto) 0.3 10 ^3/uL (0-0.8); Eosinophils % (auto) 3.7 % (0.0-7.0); Hematocrit 34.3 % (36.0-46.0); Hemoglobin 11.8 g/dL (12.2-16.2); Lymphocytes # (auto) 2.1 10 ^3/uL (0.4-5.4); Lymphocytes % (auto) 30.6 % (10.0-50.0); Mean Corpuscular Hemoglobin 32.3 pg (28.0-32.0); Mean Corpuscular Hgb Conc. 34.5 g/dL (32.0-36.0); Mean Corpuscular Volume 93.6 fL (80.0-100.0); Monocytes # (auto) 0.5 10 ^3/uL (0-1.3); Monocytes % (auto) 6.7 % (0.0-12.0); Neutrophils % (auto) 58.7 % (37.0-80.0); Nucleated Red Blood Cells % 0.1 %; Platelet Count (auto) 258 10^3/uL (140-450); Red Blood Cells 3.66 10^6/uL (4.0-5.20); Red Cell Distribution Width 13.2 % (11.8-14.3); White Blood Cell 6.8 10^3/uL (4.4-10.8)
[2020-09-13 11:32] LABS: Albumin 3.3 g/dL (3.4-5.0); Calcium 9.2 mg/dL (8.5-10.1); Potassium 4.1 mmol/L (3.5-5.1)
[2020-09-13 11:38] LABS: BUN/Creatinine Ratio 26.8; Bilirubin, Total 0.3 mg/dL (0.2-1.0); Total Protein 7.2 g/dL (6.4-8.2)
== END | disposition home or self-care (01) ==
LOC: LAB 10:31
PROVIDERS: ATTEND Physician Assistant
DX: E11.42 Type 2 diabetes mellitus with diabetic polyneuropathy (principal); G47.33 Obstructive sleep apnea (adult) (pediatric); I10 Essential (primary) hypertension; E66.01 Morbid (severe) obesity due to excess calories; I42.0 Dilated cardiomyopathy
CPT/HCPCS: 36415; 80053; 80061; 82043; 83036; 85025

== ENCOUNTER → 2020-11-21 | Outpatient (CLI) | payer MEDICARE, MEDICAID | END | disposition home or self-care (01) | LOC: LAB 14:37 | PROVIDERS: ATTEND Internal Medicine | DX: R94.4 Abnormal results of kidney function studies (principal) | CPT/HCPCS: 36415; 82565 ==

== ENCOUNTER → 2020-11-22 | Outpatient (CLI) | payer MEDICARE, MEDICAID ==
[~2020-11-22] MED LIST changes: +IOHEXOL 350 MG/ML 100ML IJ ONE; +METOPROLOL TARTRATE 1MG/1ML-5ML VIAL IV ONE; +NITROGLYCERIN 0.4 MG SL TAB SL ONE; +SODIUM CHLORIDE 0.9% 500 ML IV ONE
[2020-11-22 10:46] VITALS: BP 109/59
[2020-11-22 13:09] VITALS: BP 100/52
== END | disposition home or self-care (01) ==
LOC: Rad HDHVI 10:38
PROVIDERS: ATTEND Internal Medicine
DX: I95.9 Hypotension, unspecified (principal); I11.0 Hypertensive heart disease with heart failure; I50.9 Heart failure, unspecified; I42.8 Other cardiomyopathies; E11.9 Type 2 diabetes mellitus without complications; G89.29 Other chronic pain; E66.01 Morbid (severe) obesity due to excess calories
CPT/HCPCS: 96361; 96374; G0463; J7040; Q9967

== ENCOUNTER → 2021-01-28 | Outpatient (CLI) | payer MEDICARE, MEDICAID ==
[~2021-01-28] MED LIST changes: -CETI10TA80 PO; -DICY10CA12 PO; -DOCU-94 PO; -IOHEXOL 350 MG/ML 100ML IJ ONE; -LEVO-28 PO; +LEVO500T31 PO; -METOPROLOL TARTRATE 1MG/1ML-5ML VIAL IV ONE; +METR500T PO; -NITROGLYCERIN 0.4 MG SL TAB SL ONE; +ONDA-144 PO; -PAROXETINE PO; -SODIUM CHLORIDE 0.9% 500 ML IV ONE; +VORT10TA PO; -[UNRECOGNIZED DRUG - CODE] PO
[2021-01-28 14:55] LABS: Basophils # (auto) 0 10 ^3/uL (0-0.2); Basophils % (auto) 0.5 % (0.0-2.0); Eosinophils # (auto) 0.2 10 ^3/uL (0-0.8); Eosinophils % (auto) 2.6 % (0.0-7.0); Hematocrit 37.7 % (36.0-46.0); Hemoglobin 12.5 g/dL (12.2-16.2); Lymphocytes % (auto) 23.9 % (10.0-50.0); Mean Corpuscular Hemoglobin 30.2 pg (28.0-32.0); Mean Corpuscular Hgb Conc. 33.2 g/dL (32.0-36.0); Mean Corpuscular Volume 90.9 fL (80.0-100.0); Monocytes # (auto) 0.6 10 ^3/uL (0-1.3); Monocytes % (auto) 6.9 % (0.0-12.0); Neutrophils # (auto) 5.6 10 ^3/uL (1.6-8.6); Neutrophils % (auto) 66.1 % (37.0-80.0); Red Blood Cells 4.15 10^6/uL (4.0-5.20); White Blood Cell 8.5 10^3/uL (4.4-10.8)
[2021-01-28 15:35] LABS: Albumin 3.5 g/dL (3.4-5.0); Calcium 9.4 mg/dL (8.5-10.1); Potassium 3.3 mmol/L (3.5-5.1)
[2021-01-28 15:38] LABS: BUN/Creatinine Ratio 14.9; Bilirubin, Total 0.5 mg/dL (0.2-1.0); Total Protein 7.4 g/dL (6.4-8.2)
[2021-01-28 15:45] LABS: Urine Bacteria NONE SEEN /hpf (None Seen); Urine Blood Negative /uL (Negative); Urine Specific Gravity 1.017 (1.001-1.035); Urine WBC 1 /hpf (0 - 5)
== END | disposition home or self-care (01) ==
LOC: LAB 14:30
PROVIDERS: ATTEND Nurse Practitioner Family
DX: I10 Essential (primary) hypertension (principal); K57.92 Diverticulitis of intestine, part unspecified, without perforation or abscess without bleeding; R68.83 Chills (without fever)
CPT/HCPCS: 36415; 80053; 81001; 85025; 87086

== ENCOUNTER → 2021-02-22 | Day surgery (SDC) | payer MEDICARE, MEDICAID ==
[2021-02-14 11:46] LABS: Basophils # (auto) 0 10 ^3/uL (0-0.2); Basophils % (auto) 0.4 % (0.0-2.0); Eosinophils # (auto) 0.2 10 ^3/uL (0-0.8); Eosinophils % (auto) 1.8 % (0.0-7.0); Hematocrit 35.6 % (36.0-46.0); Hemoglobin 12.3 g/dL (12.2-16.2); Lymphocytes # (auto) 1.8 10 ^3/uL (0.4-5.4); Mean Corpuscular Hgb Conc. 34.5 g/dL (32.0-36.0); Monocytes # (auto) 0.3 10 ^3/uL (0-1.3); Monocytes % (auto) 4.1 % (0.0-12.0); Neutrophils % (auto) 71.7 % (37.0-80.0); Red Blood Cells 3.95 10^6/uL (4.0-5.20); Red Cell Distribution Width 12.9 % (11.8-14.3); White Blood Cell 8.3 10^3/uL (4.4-10.8)
[2021-02-14 12:13] LABS: Albumin 3.3 g/dL (3.4-5.0); Calcium 8.9 mg/dL (8.5-10.1); Potassium 3.2 mmol/L (3.5-5.1)
[2021-02-14 12:16] LABS: BUN/Creatinine Ratio 15.7; Bilirubin, Total 0.5 mg/dL (0.2-1.0); Total Protein 7.6 g/dL (6.4-8.2)
[~2021-02-22] VITALS: Ht 144.8 cm; Wt 113.4 kg
[~2021-02-22] MED LIST changes: +ACET-1079 PO; -ASCO500T11 PO; +CIPR-173 PO; +FAMO20TA10 PO; +IBUP200C14 PO; +LIDOCAINE VISCOUS 2% 15ML UD ONE; +METR500T14 PO; +MIDAZOLAM HCL 5 MG/ML-1ML VIAL ONE; +POLY33504 PO; -POTA10TA51 PO; +SODIUM CHLORIDE LOCK 10 ML ONE; +diphenhdrAMINE HCL 50 MG/1 ML VL ONE; +fentaNYL CITRATE 100 MCG/2 ML VL ONE
[2021-02-22] MEDS: diphenhdrAMINE HCL 50 MG/1 ML VL ONE ×2 (12:54→12:57)
[2021-02-22] MEDS: MIDAZOLAM HCL 5 MG/ML-1ML VIAL ONE ×2 (12:54→12:57)
[2021-02-22] MEDS: fentaNYL CITRATE 100 MCG/2 ML VL ONE ×2 (12:54→12:57)
[2021-02-22 13:55] VITALS: BP 109/55
== END | disposition home or self-care (01) ==
LOC: GI 02-20 13:26
PROVIDERS: ATTEND Internal Medicine Gastroenterology
DX: R11.2 Nausea with vomiting, unspecified (principal); K21.9 Gastro-esophageal reflux disease without esophagitis; K29.50 Unspecified chronic gastritis without bleeding; K44.9 Diaphragmatic hernia without obstruction or gangrene; I11.0 Hypertensive heart disease with heart failure; I50.9 Heart failure, unspecified; E11.9 Type 2 diabetes mellitus without complications; I20.9 Angina pectoris, unspecified; J44.9 Chronic obstructive pulmonary disease, unspecified; F31.9 Bipolar disorder, unspecified; F41.9 Anxiety disorder, unspecified; Z98.890 Other specified postprocedural states; Z96.653 Presence of artificial knee joint, bilateral; Z79.899 Other long term (current) drug therapy; Z20.822 Contact with and (suspected) exposure to COVID-19; Z82.49 Family history of ischemic heart disease and other diseases of the circulatory system; Z80.0 Family history of malignant neoplasm of digestive organs; Z80.8 Family history of malignant neoplasm of other organs or systems
CPT/HCPCS: 36415; 43239; 80053; 85025; 88305; 88342; J1200; J2250; J3010; J7030; U0003; G0500

== ENCOUNTER 2021-03-25 11:52 | Inpatient (IN) | payer MEDICARE, MEDICAID ==
[~2021-03-25] VITALS: Ht 144.8 cm; Wt 111.3 kg
[~2021-03-25 11:52] MED LIST changes: -ACET-1079 PO; -CIPR-173 PO; -FAMO20TA10 PO; -LIDOCAINE VISCOUS 2% 15ML UD ONE; -METR500T14 PO; -MIDAZOLAM HCL 5 MG/ML-1ML VIAL ONE; -POLY33504 PO; -SODIUM CHLORIDE LOCK 10 ML ONE; -diphenhdrAMINE HCL 50 MG/1 ML VL ONE; -fentaNYL CITRATE 100 MCG/2 ML VL ONE
[2021-03-25] MEDS ORDERED: SODIUM CHLORIDE 0.9% 500 ML IVB ONE (12:45)
[2021-03-25 13:08] LABS: Basophils # (auto) 0.1 10 ^3/uL (0-0.2); Basophils % (auto) 0.6 % (0.0-2.0); Eosinophils # (auto) 0.2 10 ^3/uL (0-0.8); Eosinophils % (auto) 2.5 % (0.0-7.0); Hematocrit 34.2 % (36.0-46.0); Hemoglobin 11.7 g/dL (12.2-16.2); Lymphocytes # (auto) 2.3 10 ^3/uL (0.4-5.4); Lymphocytes % (auto) 23.5 % (10.0-50.0); Mean Corpuscular Hgb Conc. 34.1 g/dL (32.0-36.0); Mean Corpuscular Volume 90.9 fL (80.0-100.0); Monocytes # (auto) 0.7 10 ^3/uL (0-1.3); Monocytes % (auto) 6.7 % (0.0-12.0); Neutrophils # (auto) 6.5 10 ^3/uL (1.6-8.6); Neutrophils % (auto) 66.7 % (37.0-80.0); Red Blood Cells 3.76 10^6/uL (4.0-5.20); Red Cell Distribution Width 13.5 % (11.8-14.3); White Blood Cell 9.7 10^3/uL (4.4-10.8)
[2021-03-25 13:33] LABS: Albumin 3.4 g/dL (3.4-5.0); Calcium 8.9 mg/dL (8.5-10.1); Magnesium 2.3 mg/dL (1.6-2.6); Potassium 3.5 mmol/L (3.5-5.1)
[2021-03-25 13:34] LABS: INR 1.07 (0.9-1.15); Partial Thromboplastin Time 33.5 sec (23.6-33.0)
[2021-03-25 13:41] LABS: BUN/Creatinine Ratio 13.1; Bilirubin, Total 0.6 mg/dL (0.2-1.0); Total Protein 8.1 g/dL (6.4-8.2)
[2021-03-25] MEDS ORDERED: CIPROFLOXACIN 400MG/200ML 200 ML IV ONE (14:00)
[2021-03-25] MEDS ORDERED: ACET-1079 PO (16:02)
[2021-03-25] MEDS ORDERED: FAMO20TA10 PO (16:02)
[2021-03-25] MEDS ORDERED: POLY33504 PO (16:02)
[2021-03-25] MEDS ORDERED: METR500T14 PO (16:02)
[2021-03-25] MEDS ORDERED: CIPR-173 PO (16:02)
[2021-03-25] MEDS ORDERED: PROCHLORPERAZINE EDISYLATE 5 MG/ML 2ML VIAL IV PRN (16:30)
[2021-03-25] MEDS ORDERED: MORPHINE SULFATE INJECTION 2 MG/ML SYRG IV PRN ×2 (17:15→17:45)
[2021-03-25] MEDS ORDERED: NITROGLYCERIN 0.4 MG SL TAB SL PRN ×2 (17:15→17:45)
[2021-03-25] MEDS: SODIUM CHLORIDE 0.9% 1,000 ML IV SCH (17:33)
[2021-03-25] MEDS ORDERED: ACETAMINOPHEN 325 MG TAB PO PRN (17:45)
[2021-03-25] MEDS ORDERED: LORazepam 0.5 MG TAB PO PRN (17:45)
[2021-03-25] MEDS ORDERED: DICYCLOMINE HCL 10 MG CAP PO PRN (17:45)
[2021-03-25] MEDS ORDERED: ALUM & MAG HYDROX-SIMETH LIQ(MAALOX) 30 ML PO PRN (17:45)
[2021-03-25] MEDS ORDERED: hydrALAZINE HCL 20 MG/ML VL IV PRN ×2 (17:45)
[2021-03-25] MEDS ORDERED: DEXTROSE (50%) 50ML SYRG IV PRN (17:45)
[2021-03-25] MEDS: FAMOTIDINE (10MG/ML) 2ML VL IV ONE ×2 (18:30→19:21)
[2021-03-25] MEDS: FUROSEMIDE 20 MG/2 ML VIAL IV SCH (19:21)
[2021-03-25] MEDS: MORPHINE SULFATE INJECTION 2 MG/ML SYRG IV PRN (19:50)
[2021-03-25] MEDS: ONDANSETRON HCL 4 MG/2 ML VIAL IV PRN (19:50)
[2021-03-25] MEDS: levoFLOXacin 250MG 50 ML IV SCH (20:13)
[2021-03-25] MEDS: InsuLIN REG 1unit/0.01ml Soln (100units/ml) SC SCH (22:00)
[2021-03-25] MEDS ORDERED: ATORVASTATIN 20 MG TAB PO SCH (22:00)
[2021-03-25] MEDS: metroNIDAZOLE 500MG/100ML 100 ML IV SCH (22:23)
[2021-03-25] MEDS: ACCU-CHEK COMFORT CURVE STRIP VI SCH (22:37)
[2021-03-26 05:00] VITALS: BP 92/47
[2021-03-26] MEDS: metroNIDAZOLE 500MG/100ML 100 ML IV SCH ×2 (05:25→14:00)
[2021-03-26] MEDS: FUROSEMIDE 20 MG/2 ML VIAL IV SCH (05:25)
[2021-03-26 06:02] LABS: Basophils # (auto) 0 10 ^3/uL (0-0.2); Basophils % (auto) 0.4 % (0.0-2.0); Eosinophils # (auto) 0.2 10 ^3/uL (0-0.8); Eosinophils % (auto) 2.9 % (0.0-7.0); Hematocrit 33.1 % (36.0-46.0); Hemoglobin 11.3 g/dL (12.2-16.2); Lymphocytes % (auto) 24.5 % (10.0-50.0); Mean Corpuscular Hemoglobin 31.4 pg (28.0-32.0); Mean Corpuscular Hgb Conc. 34.2 g/dL (32.0-36.0); Mean Corpuscular Volume 91.8 fL (80.0-100.0); Monocytes # (auto) 0.5 10 ^3/uL (0-1.3); Monocytes % (auto) 6.1 % (0.0-12.0); Neutrophils # (auto) 5.4 10 ^3/uL (1.6-8.6); Neutrophils % (auto) 66.1 % (37.0-80.0); Red Cell Distribution Width 13.3 % (11.8-14.3); White Blood Cell 8.2 10^3/uL (4.4-10.8)
[2021-03-26 06:07] LABS: INR 1.1 (0.9-1.15)
[2021-03-26 06:13] LABS: Calcium 7.9 mg/dL (8.5-10.1); Potassium 3.3 mmol/L (3.5-5.1)
[2021-03-26 06:22] LABS: BUN/Creatinine Ratio 15.1; Bilirubin, Total 0.5 mg/dL (0.2-1.0); Phosphorus 3.8 mg/dL (2.5-4.90); Total Protein 6.5 g/dL (6.4-8.2); Uric Acid 10.6 mg/dL (2.6-6.0)
[2021-03-26] MEDS: ACCU-CHEK COMFORT CURVE STRIP VI SCH ×4 (07:00→22:11)
[2021-03-26] MEDS: InsuLIN REG 1unit/0.01ml Soln (100units/ml) SC SCH ×4 (07:00→22:00)
[2021-03-26 09:00] VITALS: BP 107/55
[2021-03-26] MEDS ORDERED: ISOSORBIDE MONONITRATE ER 60 MG TAB PO SCH (10:00)
[2021-03-26] MEDS: MORPHINE SULFATE INJECTION 2 MG/ML SYRG IV PRN (10:01)
[2021-03-26] MEDS: ENOXAPARIN SOD 120 MG/0.8 ML SYRINGE SC SCH (10:03)
[2021-03-26] MEDS: SODIUM CHLORIDE 0.9% 1,000 ML IV SCH (10:03)
[2021-03-26 12:55] VITALS: BP 120/71
[2021-03-26] MEDS ORDERED: POTASSIUM CHL 20 Meq TABLET PO ONE (14:45)
[2021-03-26] MEDS: ONDANSETRON HCL 4 MG/2 ML VIAL IV PRN ×2 (15:41→22:06)
[2021-03-26] MEDS: HYDROmorphone HCL 2 MG/ML VL IV PRN ×2 (15:42→22:10)
[2021-03-26 16:40] VITALS: BP 90/56
[2021-03-26] MEDS: levoFLOXacin 250MG 50 ML IV SCH (19:52)
[2021-03-26] MEDS: metroNIDAZOLE 500 MG TAB PO SCH (22:00)
[2021-03-26] MEDS: FAMOTIDINE (10MG/ML) 2ML VL IV SCH (22:06)
[2021-03-27 00:07] VITALS: BP 114/59
[2021-03-27] MEDS: SODIUM CHLORIDE 0.9% 1,000 ML IV SCH (02:50)
[2021-03-27 05:00] VITALS: BP 112/61
[2021-03-27] MEDS: metroNIDAZOLE 500 MG TAB PO SCH ×3 (06:00→21:26)
[2021-03-27] MEDS: InsuLIN REG 1unit/0.01ml Soln (100units/ml) SC SCH ×4 (06:15→21:26)
[2021-03-27] MEDS: ACCU-CHEK COMFORT CURVE STRIP VI SCH ×4 (06:15→21:26)
[2021-03-27] MEDS: ONDANSETRON HCL 4 MG/2 ML VIAL IV PRN ×3 (06:17→20:31)
[2021-03-27 06:23] LABS: Calcium 7.6 mg/dL (8.5-10.1); Magnesium 1.8 mg/dL (1.6-2.6); Potassium 3.8 mmol/L (3.5-5.1)
[2021-03-27 06:26] LABS: BUN/Creatinine Ratio 15.6
[2021-03-27 09:00] VITALS: BP 129/71
[2021-03-27] MEDS: FUROSEMIDE 20 MG/2 ML VIAL IV SCH (09:07)
[2021-03-27] MEDS: ENOXAPARIN SOD 120 MG/0.8 ML SYRINGE SC SCH (09:08)
[2021-03-27 13:00] VITALS: BP 117/54
[2021-03-27 17:00] VITALS: BP 133/76
[2021-03-27] MEDS ORDERED: MAGNESIUM SULFATE 1GM/100ML 100 ML IV ONE (17:00)
[2021-03-27] MEDS: HYDROmorphone HCL 2 MG/ML VL IV PRN (17:58)
[2021-03-27] MEDS: levoFLOXacin 250MG 50 ML IV SCH (20:31)
[2021-03-27] MEDS: FAMOTIDINE (10MG/ML) 2ML VL IV SCH (21:20)
[2021-03-27 22:00] VITALS: BP 128/72
[2021-03-27 22:04] LABS: Urine Bacteria NONE SEEN /hpf (None Seen); Urine Blood Negative /uL (Negative); Urine Specific Gravity 1.006 (1.001-1.035); Urine WBC 1 /hpf (0 - 5)
[2021-03-27 22:29] LABS: Alcohol, Urine < 3.0 mg/dL (0-10)
[2021-03-27 22:30] LABS: Amphetamine Screen, Urine NEGATIVE (NEGATIVE); Barbiturate Scree,Urine NEGATIVE (NEGATIVE); Benzodiazephine Screen, Urine NEGATIVE (NEGATIVE); Cocaine Screen, Urine NEGATIVE (NEGATIVE); Opiate Scree,Urine NEGATIVE (NEGATIVE); Phencyclidine Screen, Urine NEGATIVE (NEGATIVE)
[2021-03-27 22:31] LABS: Cannabinoid Screen, Urine NEGATIVE (NEGATIVE)
[2021-03-28 05:00] VITALS: BP 120/70
[2021-03-28] MEDS: metroNIDAZOLE 500 MG TAB PO SCH ×2 (06:00→14:00)
[2021-03-28] MEDS: SODIUM CHLORIDE 0.9% 1,000 ML IV SCH ×2 (06:09→12:10)
[2021-03-28] MEDS: ACCU-CHEK COMFORT CURVE STRIP VI SCH ×4 (06:10→21:29)
[2021-03-28] MEDS: InsuLIN REG 1unit/0.01ml Soln (100units/ml) SC SCH ×4 (06:10→21:40)
[2021-03-28 07:06] LABS: Calcium 8.3 mg/dL (8.5-10.1); Magnesium 2.7 mg/dL (1.6-2.6); Potassium 3.8 mmol/L (3.5-5.1)
[2021-03-28 09:00] VITALS: BP 116/73
[2021-03-28] MEDS: ENOXAPARIN SOD 120 MG/0.8 ML SYRINGE SC SCH (09:38)
[2021-03-28] MEDS: FUROSEMIDE 20 MG/2 ML VIAL IV SCH (09:38)
[2021-03-28] MEDS: HYDROmorphone HCL 2 MG/ML VL IV PRN ×2 (09:40→18:47)
[2021-03-28] MEDS: ONDANSETRON HCL 4 MG/2 ML VIAL IV PRN ×3 (09:54→23:27)
[2021-03-28 12:35] LABS: BUN/Creatinine Ratio 11.1
[2021-03-28 13:00] VITALS: BP 132/62
[2021-03-28 17:00] VITALS: BP 133/86
[2021-03-28] MEDS: levoFLOXacin 500MG 100 ML IV SCH (17:00)
[2021-03-28] MEDS: FAMOTIDINE (10MG/ML) 2ML VL IV SCH (21:28)
[2021-03-28] MEDS: GABAPENTIN 300 MG CAP PO SCH (21:28)
[2021-03-29] MEDS: ONDANSETRON HCL 4 MG/2 ML VIAL IV PRN ×2 (04:49→09:56)
[2021-03-29 05:00] VITALS: BP 130/70
[2021-03-29] MEDS: InsuLIN REG 1unit/0.01ml Soln (100units/ml) SC SCH ×4 (06:11→21:21)
[2021-03-29] MEDS: ACCU-CHEK COMFORT CURVE STRIP VI SCH ×4 (06:11→21:09)
[2021-03-29] MEDS: SODIUM CHLORIDE 0.9% 1,000 ML IV SCH (06:12)
[2021-03-29 06:21] LABS: Calcium 8.1 mg/dL (8.5-10.1)
[2021-03-29 06:24] LABS: BUN/Creatinine Ratio 10.1
[2021-03-29 09:00] VITALS: BP 134/81
[2021-03-29] MEDS: DOCUSATE SOD 100 MG CAP PO PRN (09:55)
[2021-03-29] MEDS: GABAPENTIN 300 MG CAP PO SCH ×2 (09:55→21:09)
[2021-03-29] MEDS: FAMOTIDINE (10MG/ML) 2ML VL IV SCH ×2 (09:56→21:09)
[2021-03-29] MEDS: ENOXAPARIN SOD 40 MG/0.4 ML SYRINGE SC SCH (09:56)
[2021-03-29] MEDS: levoFLOXacin 500MG 100 ML IV SCH (09:56)
[2021-03-29] MEDS: TRINTELLIX 10 MG PO SCH (10:00)
[2021-03-29 12:30] VITALS: BP 143/66
[2021-03-29] MEDS: FUROSEMIDE 20 MG/2 ML VIAL IV SCH (12:31)
[2021-03-29 17:00] VITALS: BP 152/69
[2021-03-29] MEDS ORDERED: MILK OF MAGNESIA 30ML SUSP PO ONE (17:30)
[2021-03-29] MEDS ORDERED: TEMAZEPAM 15 MG CAP PO PRN (17:30)
[2021-03-29] MEDS: HYDROcodone-ACET 5/325MG TAB PO PRN ×2 (17:50→22:37)
[2021-03-29 20:35] VITALS: BP 136/72
[2021-03-30 05:00] VITALS: BP 139/75
[2021-03-30] MEDS: ONDANSETRON HCL 4 MG/2 ML VIAL IV PRN ×2 (05:41→17:04)
[2021-03-30] MEDS: ACCU-CHEK COMFORT CURVE STRIP VI SCH ×4 (05:41→21:52)
[2021-03-30] MEDS: InsuLIN REG 1unit/0.01ml Soln (100units/ml) SC SCH ×4 (05:52→21:51)
[2021-03-30 09:00] VITALS: BP 124/89
[2021-03-30] MEDS: TRINTELLIX 10 MG PO SCH (10:00)
[2021-03-30] MEDS: FAMOTIDINE (10MG/ML) 2ML VL IV SCH ×2 (10:00→21:52)
[2021-03-30] MEDS: FUROSEMIDE 20 MG/2 ML VIAL IV SCH (10:12)
[2021-03-30] MEDS: levoFLOXacin 500MG 100 ML IV SCH (10:12)
[2021-03-30] MEDS: HYDROcodone-ACET 5/325MG TAB PO PRN ×2 (10:13→22:39)
[2021-03-30] MEDS: GABAPENTIN 300 MG CAP PO SCH ×2 (10:13→21:52)
[2021-03-30] MEDS: ENOXAPARIN SOD 40 MG/0.4 ML SYRINGE SC SCH (10:13)
[2021-03-30 13:00] VITALS: BP 133/79
[2021-03-30] MEDS ORDERED: POLYETHYLENE GLYCOL 17 GM PWDR PO ONE (13:00)
[2021-03-30 17:00] VITALS: BP 122/56
[2021-03-30 22:00] VITALS: BP 160/87
[2021-03-30] MEDS: DOCUSATE SOD 100 MG CAP PO PRN (22:39)
[2021-03-30 23:36] VITALS: BP 141/79
[2021-03-31] MEDS: ONDANSETRON HCL 4 MG/2 ML VIAL IV PRN (02:23)
[2021-03-31 05:00] VITALS: BP 127/52
[2021-03-31] MEDS: InsuLIN REG 1unit/0.01ml Soln (100units/ml) SC SCH ×3 (06:05→17:00)
[2021-03-31] MEDS: ACCU-CHEK COMFORT CURVE STRIP VI SCH ×3 (06:05→17:00)
[2021-03-31 09:06] VITALS: BP 146/68
[2021-03-31] MEDS: FAMOTIDINE (10MG/ML) 2ML VL IV SCH (09:41)
[2021-03-31] MEDS: GABAPENTIN 300 MG CAP PO SCH (09:41)
[2021-03-31] MEDS: levoFLOXacin 500MG 100 ML IV SCH (09:41)
[2021-03-31] MEDS: FUROSEMIDE 20 MG/2 ML VIAL IV SCH (09:41)
[2021-03-31] MEDS: TRINTELLIX 10 MG PO SCH (09:42)
[2021-03-31] MEDS: ENOXAPARIN SOD 40 MG/0.4 ML SYRINGE SC SCH (09:42)
[2021-03-31] MEDS ORDERED: POLYETHYLENE GLYCOL 17 GM PWDR PO PRN (10:00)
[2021-03-31] MEDS: HYDROcodone-ACET 5/325MG TAB PO PRN (12:07)
[2021-03-31 14:11] VITALS: BP 130/68
[2021-03-31 17:00] VITALS: BP 151/86
== END 2021-03-31 18:00 | disposition home or self-care (01) | DRG 391 ==
LOC: ER 11:52 → TELE 17:15 → TELE-WESTW 23:04
PROVIDERS: ADMIT Hospitalist; ATTEND Internal Medicine
DX: K57.32 Diverticulitis of large intestine without perforation or abscess without bleeding (principal); N17.0 Acute kidney failure with tubular necrosis; I13.0 Hypertensive heart and chronic kidney disease with heart failure and stage 1 through stage 4 chronic kidney disease, or unspecified chronic kidney disease; I82.501 Chronic embolism and thrombosis of unspecified deep veins of right lower extremity; N39.0 Urinary tract infection, site not specified; Z68.43 Body mass index [BMI] 50.0-59.9, adult; I50.32 Chronic diastolic (congestive) heart failure; G89.4 Chronic pain syndrome; N18.32 Chronic kidney disease, stage 3b; E11.40 Type 2 diabetes mellitus with diabetic neuropathy, unspecified; E55.9 Vitamin D deficiency, unspecified; E11.22 Type 2 diabetes mellitus with diabetic chronic kidney disease; E66.01 Morbid (severe) obesity due to excess calories; F41.9 Anxiety disorder, unspecified; M54.50 Low back pain, unspecified; Z20.822 Contact with and (suspected) exposure to COVID-19; E78.5 Hyperlipidemia, unspecified; E87.6 Hypokalemia; F32.9 Major depressive disorder, single episode, unspecified; K58.9 Irritable bowel syndrome, unspecified; M19.90 Unspecified osteoarthritis, unspecified site; Z79.01 Long term (current) use of anticoagulants; Z79.899 Other long term (current) drug therapy; Z80.0 Family history of malignant neoplasm of digestive organs; Z80.8 Family history of malignant neoplasm of other organs or systems; Z81.8 Family history of other mental and behavioral disorders; Z82.3 Family history of stroke; Z82.49 Family history of ischemic heart disease and other diseases of the circulatory system; Z85.038 Personal history of other malignant neoplasm of large intestine; Z85.828 Personal history of other malignant neoplasm of skin; Z90.49 Acquired absence of other specified parts of digestive tract; Z98.51 Tubal ligation status
CPT/HCPCS: 36415; 71045; 74176; 80048; 80053; 80307; 81001; 82306; 82962; 83036; 83605; 83690; 83735; 83880; 84100; 84443; 84484; 84550; 85025; 85610; 85730; 87040; 87086; 87426; 93005; 93970; 96365; 96366; 96367; 96375; 97110; 97116; 97163; 97530; G0378; J1815; J1956; J2405; J3490

== ENCOUNTER → 2021-06-21 | Outpatient (CLI) | payer MEDICARE, MEDICAID ==
[2021-06-21 13:22] LABS: Albumin 3.5 g/dL (3.4-5.0); Potassium 3.6 mmol/L (3.5-5.1)
[2021-06-21 13:27] LABS: BUN/Creatinine Ratio 8.7; Bilirubin, Total 0.8 mg/dL (0.2-1.0); Total Protein 7.2 g/dL (6.4-8.2)
== END | disposition home or self-care (01) ==
LOC: LAB 10:11
PROVIDERS: ATTEND Nurse Practitioner Family
DX: E87.6 Hypokalemia (principal); R11.2 Nausea with vomiting, unspecified
CPT/HCPCS: 36415; 80053

== ENCOUNTER → 2022-03-12 | Outpatient (CLI) | payer MEDICARE, MEDICAID ==
[2022-03-12 11:44] LABS: Basophils # (auto) 0 10 ^3/uL (0-0.2); Basophils % (auto) 0.4 % (0.0-2.0); Eosinophils # (auto) 0.2 10 ^3/uL (0-0.8); Hematocrit 41.8 % (36.0-46.0); Lymphocytes # (auto) 1.7 10 ^3/uL (0.4-5.4); Lymphocytes % (auto) 24.2 % (10.0-50.0); Mean Corpuscular Hemoglobin 30.7 pg (28.0-32.0); Mean Corpuscular Hgb Conc. 33.5 g/dL (32.0-36.0); Mean Corpuscular Volume 91.8 fL (80.0-100.0); Monocytes # (auto) 0.4 10 ^3/uL (0-1.3); Monocytes % (auto) 5.3 % (0.0-12.0); Neutrophils # (auto) 4.7 10 ^3/uL (1.6-8.6); Neutrophils % (auto) 67.1 % (37.0-80.0); Red Blood Cells 4.55 10^6/uL (4.0-5.20); Red Cell Distribution Width 13.7 % (11.8-14.3); White Blood Cell 7.1 10^3/uL (4.4-10.8)
[2022-03-12 12:43] LABS: Albumin 3.3 g/dL (3.4-5.0); Bilirubin, Total 0.4 mg/dL (0.2-1.0); Calcium 9.2 mg/dL (8.5-10.1); Potassium 3.9 mmol/L (3.5-5.1); Total Protein 6.9 g/dL (6.4-8.2)
== END | disposition home or self-care (01) ==
LOC: LAB 11:19
PROVIDERS: ATTEND Nurse Practitioner Family
DX: I12.9 Hypertensive chronic kidney disease with stage 1 through stage 4 chronic kidney disease, or unspecified chronic kidney disease (principal); N18.32 Chronic kidney disease, stage 3b; E11.21 Type 2 diabetes mellitus with diabetic nephropathy; E78.5 Hyperlipidemia, unspecified; R11.2 Nausea with vomiting, unspecified; Z00.00 Encounter for general adult medical examination without abnormal findings
CPT/HCPCS: 36415; 80053; 80061; 83036; 84443; 85025

== ENCOUNTER 2022-03-17 12:19 | Inpatient (IN) | payer MEDICARE, MEDICAID ==
[~2022-03-17] VITALS: Ht 144.8 cm; Wt 108.5 kg
[2022-03-17 13:44] LABS: Basophils # (auto) 0 10 ^3/uL (0-0.2); Basophils % (auto) 0.7 % (0.0-2.0); Eosinophils # (auto) 0.3 10 ^3/uL (0-0.8); Eosinophils % (auto) 4.6 % (0.0-7.0); Hematocrit 43.1 % (36.0-46.0); Hemoglobin 14.3 g/dL (12.2-16.2); Lymphocytes # (auto) 1.8 10 ^3/uL (0.4-5.4); Lymphocytes % (auto) 25.9 % (10.0-50.0); Mean Corpuscular Hemoglobin 30.6 pg (28.0-32.0); Mean Corpuscular Hgb Conc. 33.1 g/dL (32.0-36.0); Mean Corpuscular Volume 92.3 fL (80.0-100.0); Monocytes # (auto) 0.5 10 ^3/uL (0-1.3); Monocytes % (auto) 6.4 % (0.0-12.0); Neutrophils # (auto) 4.4 10 ^3/uL (1.6-8.6); Neutrophils % (auto) 62.4 % (37.0-80.0); Red Blood Cells 4.66 10^6/uL (4.0-5.20); Red Cell Distribution Width 13.5 % (11.8-14.3); White Blood Cell 7.1 10^3/uL (4.4-10.8)
[2022-03-17 14:11] LABS: Albumin 3.5 g/dL (3.4-5.0); BUN/Creatinine Ratio 16.9; Calcium 8.9 mg/dL (8.5-10.1); Potassium 4.3 mmol/L (3.5-5.1)
[2022-03-17 14:36] LABS: Bilirubin, Total 0.4 mg/dL (0.2-1.0); Total Protein 7.2 g/dL (6.4-8.2)
[2022-03-17 15:10] LABS: Urine Bacteria NONE SEEN /hpf (None Seen); Urine Blood Negative /uL (Negative); Urine Hyaline Cast FEW /lpf (0 - 2); Urine Specific Gravity 1.007 (1.001-1.035); Urine WBC <1 /hpf (0 - 5)
[2022-03-17] MEDS ORDERED: SODIUM CHLORIDE 0.9% 500 ML IV ONE (21:30)
[2022-03-17] MEDS ORDERED: HYDROcodone-ACET 5/325MG TAB PO PRN (21:30)
[2022-03-18] MEDS: metroNIDAZOLE 500MG/100ML 100 ML IV SCH ×4 (01:01→21:31)
[2022-03-18] MEDS ORDERED: POTA10TA51 PO (02:00)
[2022-03-18] MEDS ORDERED: CANA100T OR (02:00)
[2022-03-18] MEDS ORDERED: PAR20T PO (02:00)
[2022-03-18] MEDS ORDERED: ZINC220C8 PO (02:00)
[2022-03-18] MEDS: ONDANSETRON HCL 4 MG/2 ML VIAL IV PRN ×2 (02:13→10:27)
[2022-03-18 05:00] VITALS: BP 114/55
[2022-03-18 06:49] LABS: Basophils # (auto) 0.1 10 ^3/uL (0-0.2); Basophils % (auto) 0.6 % (0.0-2.0); Eosinophils # (auto) 0.3 10 ^3/uL (0-0.8); Eosinophils % (auto) 3.8 % (0.0-7.0); Hematocrit 41.9 % (36.0-46.0); Hemoglobin 13.9 g/dL (12.2-16.2); Lymphocytes # (auto) 2.8 10 ^3/uL (0.4-5.4); Mean Corpuscular Hemoglobin 30.4 pg (28.0-32.0); Mean Corpuscular Hgb Conc. 33.1 g/dL (32.0-36.0); Mean Corpuscular Volume 91.9 fL (80.0-100.0); Monocytes # (auto) 0.6 10 ^3/uL (0-1.3); Monocytes % (auto) 6.6 % (0.0-12.0); Neutrophils # (auto) 4.8 10 ^3/uL (1.6-8.6); Nucleated Red Blood Cells % 0.1 %; Red Blood Cells 4.57 10^6/uL (4.0-5.20); Red Cell Distribution Width 13.1 % (11.8-14.3); White Blood Cell 8.5 10^3/uL (4.4-10.8)
[2022-03-18 06:55] LABS: Albumin 3.1 g/dL (3.4-5.0); BUN/Creatinine Ratio 19.7; Bilirubin, Total 0.8 mg/dL (0.2-1.0); Calcium 8.5 mg/dL (8.5-10.1); Potassium 3.7 mmol/L (3.5-5.1); Total Protein 6.5 g/dL (6.4-8.2)
[2022-03-18] MEDS ORDERED: PANTOPRAZOLE 40 MG/10 ML VIAL INJ IV SCH (10:00)
[2022-03-18] MEDS: ACETAMINOPHEN 325 MG TAB PO PRN ×2 (10:27→21:31)
[2022-03-18 13:00] VITALS: BP 85/44
[2022-03-18] MEDS: KETOROLAC TROMETH 30 MG/ML 1ML VIAL IV PRN (14:45)
[2022-03-18 16:13] VITALS: BP 86/53
[2022-03-18] MEDS ORDERED: cefTRIAXone 1GM/50ML D5W 50 ML IV ONE (17:45)
[2022-03-18] MEDS ORDERED: TEMAZEPAM 15 MG CAP PO ONE (21:00)
[2022-03-18 22:00] VITALS: BP 111/59
[2022-03-19] MEDS: KETOROLAC TROMETH 30 MG/ML 1ML VIAL IV PRN ×2 (03:31→17:36)
[2022-03-19 05:00] VITALS: BP 82/45
[2022-03-19] MEDS: metroNIDAZOLE 500MG/100ML 100 ML IV SCH ×3 (05:59→21:53)
[2022-03-19] MEDS: ACETAMINOPHEN 325 MG TAB PO PRN ×2 (06:03→22:01)
[2022-03-19] MEDS: cefTRIAXone 1GM/50ML D5W 50 ML IV SCH (08:47)
[2022-03-19] MEDS ORDERED: HYOSCYAMINE SULF 0.125 MG ODT TAB PO PRN (10:15)
[2022-03-19 13:00] VITALS: BP 99/41
[2022-03-19 16:43] VITALS: BP 124/56
[2022-03-19 22:00] VITALS: BP 116/60
[2022-03-19] MEDS: PANTOPRAZOLE 40 MG TAB PO SCH (22:01)
[2022-03-20 05:00] VITALS: BP 136/50
[2022-03-20] MEDS: metroNIDAZOLE 500MG/100ML 100 ML IV SCH ×3 (06:03→21:58)
[2022-03-20] MEDS: KETOROLAC TROMETH 30 MG/ML 1ML VIAL IV PRN ×2 (06:04→19:21)
[2022-03-20 09:00] VITALS: BP 165/93
[2022-03-20] MEDS: cefTRIAXone 1GM/50ML D5W 50 ML IV SCH (09:14)
[2022-03-20] MEDS ORDERED: ZOLP5TAB5 PO (09:27)
[2022-03-20] MEDS ORDERED: FURO40TA4 PO (09:27)
[2022-03-20] MEDS ORDERED: POTA10IN6 PO (09:27)
[2022-03-20] MEDS: PANTOPRAZOLE 40 MG TAB PO SCH ×2 (12:25→21:57)
[2022-03-20] MEDS: RIVAROXABAN 10 MG TAB PO SCH (12:26)
[2022-03-20 13:00] VITALS: BP 125/78
[2022-03-20 17:00] VITALS: BP 124/73
[2022-03-20] MEDS: ACETAMINOPHEN 325 MG TAB PO PRN (19:48)
[2022-03-20] MEDS ORDERED: MELATONIN 5 MG TAB PO ONE (21:30)
[2022-03-20 22:00] VITALS: BP 124/59
[2022-03-21 05:00] VITALS: BP 128/66
[2022-03-21 05:12] LABS: Basophils # (auto) 0 10 ^3/uL (0-0.2); Basophils % (auto) 0.7 % (0.0-2.0); Eosinophils # (auto) 0.3 10 ^3/uL (0-0.8); Eosinophils % (auto) 4.9 % (0.0-7.0); Hematocrit 39.2 % (36.0-46.0); Hemoglobin 13.4 g/dL (12.2-16.2); Lymphocytes # (auto) 1.6 10 ^3/uL (0.4-5.4); Mean Corpuscular Hemoglobin 30.9 pg (28.0-32.0); Mean Corpuscular Volume 90.7 fL (80.0-100.0); Monocytes # (auto) 0.5 10 ^3/uL (0-1.3); Monocytes % (auto) 8.1 % (0.0-12.0); Neutrophils # (auto) 3.6 10 ^3/uL (1.6-8.6); Neutrophils % (auto) 59.3 % (37.0-80.0); Red Blood Cells 4.33 10^6/uL (4.0-5.20); Red Cell Distribution Width 13.5 % (11.8-14.3); White Blood Cell 6.1 10^3/uL (4.4-10.8)
[2022-03-21 05:32] LABS: Potassium 4.1 mmol/L (3.5-5.1)
[2022-03-21 05:40] LABS: Albumin 2.9 g/dL (3.4-5.0); BUN/Creatinine Ratio 15.2; Bilirubin, Total 0.5 mg/dL (0.2-1.0); Calcium 8.7 mg/dL (8.5-10.1)
[2022-03-21] MEDS: metroNIDAZOLE 500MG/100ML 100 ML IV SCH (05:59)
[2022-03-21] MEDS: KETOROLAC TROMETH 30 MG/ML 1ML VIAL IV PRN (08:09)
[2022-03-21 08:43] VITALS: BP 169/91
[2022-03-21] MEDS: cefTRIAXone 1GM/50ML D5W 50 ML IV SCH (09:01)
[2022-03-21] MEDS ORDERED: RIVAROXABAN 10 MG TAB PO SCH (10:00)
[2022-03-21] MEDS: RIVAROXABAN 10 MG TAB PO SCH (10:51)
[2022-03-21] MEDS: PANTOPRAZOLE 40 MG TAB PO SCH (10:51)
[2022-03-21] MEDS ORDERED: SUCR1SUS5 PO (11:35)
[2022-03-21] MEDS ORDERED: METR500T PO (11:35)
[2022-03-21] MEDS ORDERED: PANT40TA2 PO (11:35)
[2022-03-21] MEDS ORDERED: LEVO500T31 PO (11:35)
[2022-03-21 13:06] VITALS: BP 123/73
== END 2022-03-21 14:10 | disposition home or self-care (01) | DRG 391 ==
LOC: ER 12:25 → OVERFLOW 21:31 → WEST WING 23:30
PROVIDERS: ADMIT Nurse Practitioner Family; ATTEND Internal Medicine
DX: K57.32 Diverticulitis of large intestine without perforation or abscess without bleeding (principal); N17.0 Acute kidney failure with tubular necrosis; I13.0 Hypertensive heart and chronic kidney disease with heart failure and stage 1 through stage 4 chronic kidney disease, or unspecified chronic kidney disease; Z68.43 Body mass index [BMI] 50.0-59.9, adult; N18.30 Chronic kidney disease, stage 3 unspecified; N63.10 Unspecified lump in the right breast, unspecified quadrant; E66.01 Morbid (severe) obesity due to excess calories; I50.9 Heart failure, unspecified; E78.5 Hyperlipidemia, unspecified; Z20.822 Contact with and (suspected) exposure to COVID-19; Z96.653 Presence of artificial knee joint, bilateral; Z90.49 Acquired absence of other specified parts of digestive tract; Z82.3 Family history of stroke; Z82.49 Family history of ischemic heart disease and other diseases of the circulatory system; Z81.8 Family history of other mental and behavioral disorders; Z80.8 Family history of malignant neoplasm of other organs or systems; Z80.0 Family history of malignant neoplasm of digestive organs; Z79.899 Other long term (current) drug therapy; Z79.01 Long term (current) use of anticoagulants; Z79.84 Long term (current) use of oral hypoglycemic drugs
CPT/HCPCS: 36415; 71046; 74176; 76642; 80053; 81001; 82150; 83690; 85025; 87426; C9113; G0378; J0696; J1885; J2405; J3490

== ENCOUNTER → 2022-04-30 | Outpatient (CLI) | payer MEDICARE, MEDICAID ==
[~2022-04-30] MED LIST changes: +CANA100T OR; -IBUP200C14 PO; +PAR20T PO; +POTA10IN6 PO; +POTA10TA51 PO; +SUCR1SUS5 PO; +ZINC220C8 PO; +ZOLP5TAB5 PO
[2022-04-30 11:34] LABS: Basophils # (auto) 0.1 10 ^3/uL (0-0.2); Basophils % (auto) 0.8 % (0.0-2.0); Eosinophils # (auto) 0.2 10 ^3/uL (0-0.8); Eosinophils % (auto) 3.7 % (0.0-7.0); Hematocrit 41.6 % (36.0-46.0); Hemoglobin 13.9 g/dL (12.2-16.2); Lymphocytes # (auto) 1.7 10 ^3/uL (0.4-5.4); Lymphocytes % (auto) 26.8 % (10.0-50.0); Mean Corpuscular Hemoglobin 30.9 pg (28.0-32.0); Mean Corpuscular Hgb Conc. 33.4 g/dL (32.0-36.0); Mean Corpuscular Volume 92.4 fL (80.0-100.0); Monocytes # (auto) 0.4 10 ^3/uL (0-1.3); Monocytes % (auto) 6.8 % (0.0-12.0); Neutrophils % (auto) 61.9 % (37.0-80.0); Red Cell Distribution Width 12.7 % (11.8-14.3); White Blood Cell 6.5 10^3/uL (4.4-10.8)
[2022-04-30 11:36] LABS: Urine Blood Negative /uL (Negative); Urine Specific Gravity 1.021 (1.001-1.035)
[2022-04-30 12:01] LABS: Albumin 3.6 g/dL (3.4-5.0); Calcium 9.2 mg/dL (8.5-10.1)
[2022-04-30 12:05] LABS: BUN/Creatinine Ratio 14.7; Bilirubin, Total 0.3 mg/dL (0.2-1.0); Total Protein 6.8 g/dL (6.4-8.2)
[2022-04-30 12:10] LABS: Free T4 (Free Thyroxine) 0.9 ng/dL (0.89-1.76)
== END | disposition home or self-care (01) ==
LOC: LAB 10:05
PROVIDERS: ATTEND Internal Medicine
DX: I10 Essential (primary) hypertension (principal); E55.9 Vitamin D deficiency, unspecified
CPT/HCPCS: 36415; 80053; 80061; 81003; 82306; 82607; 83036; 84439; 84443; 85025

== ENCOUNTER 2022-09-12 11:54 | Emergency (ER) | payer MEDICARE, MEDICAID ==
[~2022-09-12] VITALS: Ht 144.8 cm; Wt 111.3 kg
[2022-09-12 13:07] LABS: Basophils # (auto) 0 10 ^3/uL (0-0.2); Basophils % (auto) 0.6 % (0.0-2.0); Eosinophils # (auto) 0.3 10 ^3/uL (0-0.8); Eosinophils % (auto) 4.6 % (0.0-7.0); Hematocrit 39.8 % (36.0-46.0); Hemoglobin 13.5 g/dL (12.2-16.2); Lymphocytes % (auto) 29.7 % (10.0-50.0); Mean Corpuscular Hemoglobin 30.8 pg (28.0-32.0); Mean Corpuscular Hgb Conc. 33.9 g/dL (32.0-36.0); Mean Corpuscular Volume 90.8 fL (80.0-100.0); Monocytes # (auto) 0.7 10 ^3/uL (0-1.3); Neutrophils # (auto) 3.7 10 ^3/uL (1.6-8.6); Neutrophils % (auto) 55.1 % (37.0-80.0); Nucleated Red Blood Cells % 0.2 %; Red Blood Cells 4.38 10^6/uL (4.0-5.20); Red Cell Distribution Width 13.1 % (11.8-14.3); White Blood Cell 6.7 10^3/uL (4.4-10.8)
[2022-09-12 13:44] LABS: Albumin 3.2 g/dL (3.4-5.0); Calcium 8.8 mg/dL (8.5-10.1)
[2022-09-12 13:48] LABS: BUN/Creatinine Ratio 20.6 (10.0-20.0); Bilirubin, Total 0.3 mg/dL (0.2-1.0); Total Protein 7.2 g/dL (6.4-8.2)
[2022-09-12 14:22] LABS: Urine Bacteria NONE SEEN /hpf (None Seen); Urine Blood Negative /uL (Negative); Urine Hyaline Cast FEW /lpf (0 - 2); Urine Specific Gravity 1.008 (1.001-1.035); Urine WBC <1 /hpf (0 - 5)
[2022-09-12] MEDS ORDERED: ALBUTEROL SULF 2.5 MG/0.5ML(0.5%) NEB SOLN ONE (14:58)
[2022-09-12] MEDS ORDERED: IPRATROPIUM BROM 0.5 MG/2.5ML INH SOL ONE (14:58)
[2022-09-12] MEDS ORDERED: ALBUTEROL SULF 2.5 MG/0.5ML(0.5%) NEB SOLN NEB ONE (15:00)
[2022-09-12] MEDS ORDERED: methylPREDNISolone SOD SUCC 125 MG/2 ML VL IM ONE (15:00)
[2022-09-12] MEDS ORDERED: IPRATROPIUM BROM 0.5 MG/2.5ML INH SOL NEB ONE (15:00)
[2022-09-12] MEDS ORDERED: PRED20TA2 PO (15:04)
[2022-09-12] MEDS ORDERED: ALBU108A5 IN (15:04)
[2022-09-12] MEDS ORDERED: DexAMETHasone SOD PHOS 10MG/1ML VIAL INJ IM ONE (16:45)
[2022-09-12 17:12] VITALS: BP 152/80
== END 2022-09-12 17:23 | disposition home or self-care (01) ==
LOC: ER 11:54
DX: J40 Bronchitis, not specified as acute or chronic (principal); I13.0 Hypertensive heart and chronic kidney disease with heart failure and stage 1 through stage 4 chronic kidney disease, or unspecified chronic kidney disease; N18.9 Chronic kidney disease, unspecified; I50.9 Heart failure, unspecified; E78.5 Hyperlipidemia, unspecified; Z90.49 Acquired absence of other specified parts of digestive tract; Z98.51 Tubal ligation status
CPT/HCPCS: 36415; 71045; 80053; 81001; 83880; 85025; 93005; 94640; 96372; 99285; J1100; J7644

== ENCOUNTER → 2022-11-26 | Outpatient (CLI) | payer MEDICARE, MEDICAID ==
[~2022-11-26] MED LIST changes: +ALBU108A5 IN; +AMOX875T4 PO; +GABA-1250 PO; -GABA300C10 PO; -LISI20TA28 PO; +LISI20TA56 PO; +PRED20TA2 PO
== END | disposition home or self-care (01) ==
LOC: Rad HDHVI 10:09
PROVIDERS: ATTEND Internal Medicine Cardiovascular Disease
DX: I08.0 Rheumatic disorders of both mitral and aortic valves (principal); I10 Essential (primary) hypertension; E78.5 Hyperlipidemia, unspecified
CPT/HCPCS: 93306

== ENCOUNTER → 2022-12-03 | Outpatient (CLI) | payer MEDICARE, MEDICAID ==
[~2022-12-03] VITALS: Ht 142.2 cm; Wt 115.7 kg
[~2022-12-03] MED LIST changes: +ADENOSINE 90 MG/30 ML INJ IV ONE; +ADENOSINE 97 MG in GIVE UN-DILUTED 0 ML IV ONE
== END | disposition home or self-care (01) ==
LOC: Rad HDHVI 09:14
PROVIDERS: ATTEND Internal Medicine Cardiovascular Disease
DX: I11.0 Hypertensive heart disease with heart failure (principal); I50.33 Acute on chronic diastolic (congestive) heart failure; R07.9 Chest pain, unspecified; R06.02 Shortness of breath; E11.21 Type 2 diabetes mellitus with diabetic nephropathy; E11.40 Type 2 diabetes mellitus with diabetic neuropathy, unspecified; E11.65 Type 2 diabetes mellitus with hyperglycemia; I82.409 Acute embolism and thrombosis of unspecified deep veins of unspecified lower extremity; Z82.49 Family history of ischemic heart disease and other diseases of the circulatory system
CPT/HCPCS: 78452; 93005; 96374; 96375; A9500; J0153

== ENCOUNTER 2023-04-28 18:50 | Emergency (ER) | payer MEDICARE, MEDICAID ==
[~2023-04-28 18:50] MED LIST changes: -ADENOSINE 90 MG/30 ML INJ IV ONE; -ADENOSINE 97 MG in GIVE UN-DILUTED 0 ML IV ONE
== END 2023-04-28 19:41 | disposition left against medical advice (07) ==
LOC: ER 18:50
DX: R11.10 Vomiting, unspecified (principal); Z53.21 Procedure and treatment not carried out due to patient leaving prior to being seen by health care provider

== ENCOUNTER 2025-01-15 00:52 | Emergency (ER) | payer OTHER, MEDICAID ==
[~2025-01-15] VITALS: Ht 144.8 cm; Wt 135.0 kg
[~2025-01-15 00:52] MED LIST changes: +POTA-36 PO; -POTA10TA51 PO
--- NOTE | 2025-01-15 01:32 | ED.PDOC ---
History of Present Illness HPI Comments Patient is a severely morbidly obese 74-year-old female who arrives to the ED today with a multitude of complaints for the past few days. Patient has a chronic history of back pain and utilize his oxycodone for that, but states that she has had significant back pain that has been radiating towards her stomach. Patient states she has a history of diverticular disease and therefore, his concern. Additionally, patient has complained of nausea and vomiting with dizziness and general ill feeling. Patient is a [facility] patient and has been seen at their facility for similar complaints. Patient states they have not done anything for her nor medicated her conditions. Patient was hypertensive on arrival. Chief Complaint: Abdominal Pain Time Seen by MD: 00:55 Primary Care Provider: Amee BARNES Reviewed Notes: Nurses Notes, Medications, Allergies Allergies: Coded Allergies: NO KNOWN ALLERGIES (Unverified , 10/05/19) Home Meds Active Scripts Amoxicillin & Pot Clavulanate (Amoxicillin/Potassium Cla) 875 Mg Tab, 1 TAB PO BID for 10 Days, #20 TAB Prov:ZELDA NEVILLEP 09/18/22 Albuterol Sulfate (Albuterol Sulfate Hfa) 108 Mcg/Act Aer, 108 MCG IN TID PRN, #1 AER Prov:ZELDA NEVILLE [employer] 09/18/22 Albuterol Sulfate (Albuterol Sulfate Hfa) 108 Mcg/Act Aer, 108 MCG IN TID PRN, #1 AER Prov:ZELDA NEVILLEP 09/12/22 Prednisone (Prednisone) 20 Mg Tab, 20 MG PO DAILY for 5 Days, #5 MG Prov:ZELDA NEVILLEP 09/12/22 Metronidazole (Flagyl) 500 Mg Tab, 500 MG PO TID for 10 Days, #30 TAB Prov:RICHARD OH MD 03/21/22 Levofloxacin (Levaquin) 500 Mg Tab, 500 MG PO DAILY for 10 Days, #10 TAB Prov:RICHARD OH MD 03/21/22 Sucralfate (Carafate) 1 Gm/10 Ml Liseth, 10 ML PO QID, #1200 ML Prov:RICHARD OH MD 03/21/22 Pantoprazole Sodium Sesquihydr (Protonix) 40 Mg Tab, 40 MG PO DAILY for 30 Days, #30 TAB Prov:RICHARD OH MD 03/21/22 Ondansetron (Zofran) 4 Mg Tab, 1 TAB PO Q6HR, #20 TAB Prov:ARYA KONG MD 12/21/20 Reported Medications Zolpidem Tartrate (Zolpidem Tartrate) 5 Mg Tab, 1 TAB PO QPM, #30 TAB 2 Refills 03/20/22 Potassium Chloride (Potassium Chloride) 10 Meq/50 Ml Inj, 10 MEQ PO DAILY, INJ 03/20/22 Furosemide (Furosemide) 40 Mg Tab, 40 MG PO DAILY for 30 Days 03/20/22 Paroxetine (PAXIL TABLET) 20 Mg Tb, 40 MG PO for 30 Days 03/18/22 Zinc Sulfate (Zinc Sulfate) 220 Mg Cap, 25 MG PO DAILY for 30 Days, MG 03/18/22 Canagliflozin (INVOKANA) 100 Mg Tab, 50 MG OR, TAB 03/18/22 Potassium Chloride (POTASSIUM CHLORIDE CR) 10 Meq Tb, 1 TAB PO DAILY, #30 TAB 5 Refills 03/18/22 Vortioxetine Hydrobromide (Trintellix) 10 Mg Tab, 10 MG PO DAILY, TAB 12/19/20 Albuterol Sulfate (VENTOLIN MDI) 90 Mcg Ih, 2 PUFF IN PRN, INH 10/05/19 Rivaroxaban (XARELTO) 10 Mg Tab, 1 TAB PO DAILY, #10 TAB 10/05/19 Carvedilol (Carvedilol) 6.25 Mg Tab, 6.25 MG PO Q12HR for 30 Days, MG 10/05/19 Rosuvastatin Calcium (Crestor) 10 Mg Tab, 1 TAB PO DAILY, #30 TAB 5 Refills 10/05/19 Hydrocodone-Acetaminophen (Gail 5/325MG) 1 Tab Tb, 1 TAB PO TID, #90 TAB 06/21/19 Gabapentin (Gabapentin) 300 Mg Cap, 300 MG PO TID, MG 03/11/18 Lisinopril (Lisinopril) 20 Mg Tab, 20 MG PO BID for 30 Days, MG 05/05/17 Metformin Hydrochloride (Metformin Hcl) 500 Mg Tab, 1 TAB PO BID, #60 TAB 3 Refills 06/17/15 Information Source: Patient, Relative Mode of Arrival: Ambulatory Severity: Moderate Timing: Days Duration: Since onset Prehospital treatment: Treatment Past Medical History PAST MEDICAL HISTORY: Angina, Anxiety, Arthritis, CHF, CKF, High Lipids, HTN, Thyroid, UTI'S Past Medical History (Other): History of chronic low back pain Surgical History: Appendectomy, BTL, Cholecystectomy, , Hernia Repair, Tubal Ligation HOD CARRIER History: No Pertinent HOD CARRIER History Family History Family History: Family hx of Cancer, Family hx of heart jacklyn, Family hx of stroke Social History Smoker: Non-Smoker Alcohol: Denies ETOH Use Drugs: Denies Drug Use Lives In: Home Constitutional: reports: fatigue, weakness; denies: chills, diaphoresis, fever, malaise, sweats, others EENTM: denies: blurred vision, double vision, ear bleeding, ear discharge, ear drainage, ear pain, ear ringing, eye pain, eye redness, hearing loss, mouth pain, mouth swelling, nasal discharge, nose bleeding, nose congestion, nose pain, photophobia, tearing, throat pain, throat swelling, voice changes, others Respiratory: denies: cough, hemoptysis, orthopnea, SOB at rest, shortness of breath, SOB with excertion, stridor, wheezing, others Cardiovascular: denies: chest pain, dizzy spells, diaphoresis, Dyspnea on exertion, edema, irregular heart beat, left arm pain, lightheadedness, palpitations, PND, syncope, others Gastrointestinal: denies: abdomen distended, abdominal pain, blood streaked bowels, constipated, diarrhea, dysphagia, difficulty swallowing, hematemesis, melena, nausea, poor appetite, poor fluid intake, rectal bleeding, rectal pain, vomiting, others Genitourinary: denies: abnormal vagina bleeding, burning, dyspareunia, dysuria, flank pain, frequency, hematuria, incontinence, pain, , vagina discharge, urgency, others Neurological: reports: dizziness; denies: fainting, headache, left sided numbness, left sided weakness, numbness, paresthesia, pre-existing deficit, right sided numbness, right sided weakness, seizure, speech problems, tingling, tremors, weakness, others Musculoskeletal: reports: back pain, muscle pain; denies: gout, joint pain, joint swelling, muscle stiffness, neck pain, others Integumetry: denies: bruises, change in color, change in hair/nails, dryness, laceration, lesions, lumps, rash, wounds, others Allergic/Immunocompromised: denies: Difficulty Healing, Frequent Infections, Hives, Itching, others Hematologic/Lymphatic: denies: anemia, blood clots, easy bleeding, easy bruising, swollen glands, others Endocrine: denies: excessive hunger, excessive sweating, excessive thirst, excessive urination, flushing, intolerance to cold, intolerance to heat, unexplained weight gain, unexplained weight loss, others Psychiatric: denies: anxiety, bipolar disorder, depression, hopeless, panic disorder, schizophrenia, sleepless, suicidal, others Physical Exam General Appearance: Moderate Distress (Moderate distress due to pain concerns.), Obese HEENT: Normal ENT Inspection, Pharynx Normal, TMs Normal Neck: Full Range of Motion, Non-Tender, Normal, Normal Inspection Respiratory: Chest Non-Tender, Lungs Clear, No Accessory Muscle Use, No Respiratory Distress, Normal Breath Sounds Cardiovascular: No Edema, No JVD, No Murmur, No Gallop, Normal Peripheral Pulses, Regular Rate/Rhythm Breast Exam: Deferred Gastrointestinal: No Pulsatile Mass, Normal Bowel Sounds, Soft, Other (Unable to elicit any the patient. Difficult to assess due to body habitus.) Genitalia: Deferred Pelvic: Deferred Rectal: Deferred Extremities: No calf tenderness, Normal capillary refill, Normal inspection, Normal range of motion, Non-tender, No pedal edema Musculoskeletal : Location: Bilateral Extremity Location: Back (Diffuse bilateral lumbar tenderness to palpation throughout. Difficult to assess due to body habitus. No signs of trauma noted.) Apperance: Tenderness: Moderate Neurologic: Alert Cerebellar Function: NOT DONE Reflexes: NOT DONE Skin: Dry, Normal Color, Warm Lymphatic: No Adenopathy Was a procedure done? Was a procedure done?: No Differential Dx Considerations may include: Diverticulitis, electrolyte abnormality, sepsis, urinary tract infection, chronic low back pain, dizziness X-Ray, Labs, Meds, VS Vital Signs Date Time Temp Pulse Resp B/P (MAP) Pulse Ox O2 Delivery O2 Flow Rate FiO2 01/15/25 02:40 74 18 96 Room Air 01/15/25 02:33 97.6 74 18 149/89 (109) 96 97.6 01/15/25 00:55 97.2 73 18 176/82 96 97.2 Lab Test 01/15/25 01:38 9/21/25 01:07 Range/Units White Blood Count 8.6 4.4-10.8 10^3/uL Red Blood Count 4.74 4.0-5.20 10^6/uL Hemoglobin 14.9 12.2-16.2 g/dL Hematocrit 44.2 36.0-46.0 % Mean Corpuscular Volume 93.2 80.0-100.0 fL Mean Corpuscular Hemoglobin 31.5 28.0-32.0 pg Mean Corpuscular Hemoglobin Concent 33.7 32.0-36.0 g/dL Red Cell Distribution Width 14.4 H 11.8-14.3 % Platelet Count 296 140-450 10^3/uL Mean Platelet Volume 6.9 6.9-10.8 fL Neutrophils (%) (Auto) 65.7 37.0-80.0 % Lymphocytes (%) (Auto) 23.1 10.0-50.0 % Monocytes (%) (Auto) 6.7 0.0-12.0 % Eosinophils (%) (Auto) 3.1 0.0-7.0 % Basophils (%) (Auto) 1.4 0.0-2.0 % Neutrophils # (Auto) 5.7 1.6-8.6 10 ^3/uL Lymphocytes # (Auto) 2.0 0.4-5.4 10 ^3/uL Monocytes # (Auto) 0.6 0-1.3 10 ^3/uL Eosinophils # (Auto) 0.3 0-0.8 10 ^3/uL Basophils # (Auto) 0.1 0-0.2 10 ^3/uL Nucleated Red Blood Cells 0.0 % Sodium Level 141 136-145 mmol/L Potassium Level 4.0 3.5-5.1 mmol/L Chloride Level 104 98-107 mmol/L Carbon Dioxide Level 28 20-31 mmol/L Anion Gap 9 5-15 Blood Urea Nitrogen 11 9-23 mg/dL Creatinine 1.05 H 0.550-1.02 mg/dL Glomerular Filtration Rate Calc 56 >90 mL/min BUN/Creatinine Ratio 10.5 10.0-20.0 Serum Glucose 179 H 74-106 mg/dL Calcium Level 9.2 8.7-10.4 mg/dL Urine Color Yellow Yellow Urine Clarity Clear Clear Urine pH 6.5 5.0-9.0 Urine Specific [place] 1.021 1.001-1.035 Urine Protein Negative Negative Urine Ketones Negative Negative Urine Blood Negative Negative /uL Urine Nitrite Negative Negative Urine Bilirubin Negative Negative Urine Urobilinogen Normal Negative mg/dL Urine Leukocyte Esterase Negative Negative /uL Urine RBC <1 0 - 4 /hpf Urine Microscopic WBC 1 0-5 /HPF Urine Squamous Epithelial Cells Few <5 /hpf Urine Bacteria None seen None Seen /hpf Urine Glucose 4+ H Normal mg/dL Current Medications Medications (Trade) Dose Ordered Sig/Faisal Route Start Time Stop Time Status Last Admin Promethazine HCl/ Dextromethorphan (Phenergan-Dm) 5 ml ONCE ONCE PO 01/15/25 01:15 01/15/25 01:16 DC 01/15/25 02:36 Metoclopramide HCl (Reglan Injection) 10 mg ONCE ONCE IM 01/15/25 01:15 01/15/25 01:16 DC 01/15/25 02:33 Oxycodone/ Acetaminophen (Percocet 5/ 325MG Tablet) 1 tab ONCE ONCE PO 01/15/25 01:15 01/15/25 01:16 DC 01/15/25 02:33 X-Ray, Labs, Meds, VS Comment Laboratories and imaging had not returned at time of this note. Patient care is being transferred to [facility] for evaluation of results once returned. CT abdomen and pelvis IMPRESSION: 1. No acute abdominal or pelvic findings CT abdomen and pelvis with the no acute findings CBC CMP UA within normal limits. Patient was given Reglan IM for nausea with improvement. Script trial of Reglan advised take medication as prescribed side effects discussed. Patient advised to follow up with her PCP at [facility] consider referral to pain management and referral to GI if symptoms persist. Advised on ER return precautions patient indicated understanding agrees with discharge plan of care. Time of 1ST Reevaluation: 01:30 Reevaluation 1ST: Improved Time of 2ND Reevaluation: 02:53 Reevaluation 2ND: Improved Consultation: PCP Patient Education/Counseling: Diagnosis, Treatment Family Education/Counseling: Diagnosis, Treatment SEPSIS Sepsis Screen Date sepsis recognized/suspect: Jan 15, 2025 Time Sepsis recognized/suspect: 0103 Recent Procedure: No Respiratory Rate >20: No Heart Rate >90: No Temp<36 C (96.8 F) or >38.3 C: No SBP <90 or MAP <65 mmHG: No New Acute Mental Status Change: No Is the patient on CPAP, BIPAP,: No Physician Orders Ct Ab Pel Wo Con-No Oral Or Iv (01/15/25 01:07) Vital Signs Date Time Temp Pulse Resp B/P (MAP) Pulse Ox O2 Delivery O2 Flow Rate FiO2 01/15/25 02:40 74 18 96 Room Air 01/15/25 02:33 97.6 74 18 149/89 (109) 96 97.6 01/15/25 00:55 97.2 73 18 176/82 96 97.2 Laboratory Tests Test 01/15/25 01:38 White Blood Count 8.6 10^3/uL (4.4-10.8) Medications Medications Dose Ordered Sig/Faisal Route Start Time Stop Time Status Last Admin Dose Admin Metoclopramide HCl 10 mg ONCE ONCE IM 01/15/25 01:15 01/15/25 01:16 DC 01/15/25 02:33 Oxycodone/ Acetaminophen 1 tab ONCE ONCE PO 01/15/25 01:15 01/15/25 01:16 DC 01/15/25 02:33 Promethazine HCl/ Dextromethorphan 5 ml ONCE ONCE PO 01/15/25 01:15 01/15/25 01:16 DC 01/15/25 02:36 Departure 1 Departure Time of Disposition: 01:31 Impression: Primary Impression: Chronic back pain Qualified Codes: M54.9 - Dorsalgia, unspecified; G89.29 - Other chronic pain Additional Impressions: Dizziness Nausea & vomiting Qualified Codes: R11.2 - Nausea with vomiting, unspecified Disposition: 30 STILL A PATIENT Condition: Fair e-Prescriptions Metoclopramide Hcl (Reglan) 10 Mg Tab 10 MG PO BID for 5 Days, #10 TAB Prov: NALINI DALY 01/15/25 Discharged With: Self, Relative Critical Care Note Critical Care Time?: No Stability Stability form required: No Heart Score Heart Score: Heart Score Response (Comments) Value History N/A 0 EKG N/A 0 Age N/A 0 Risk Factors N/A 0 Troponin N/A 0 Total 0 EMILY HART PAC Jan 15, 2025 01:31 NALINI DALY Jan 15, 2025 02:23
[2025-01-15 01:43] LABS: Hematocrit 44.2 % (36.0-46.0); Hemoglobin 14.9 g/dL (12.2-16.2); Mean Corpuscular Hemoglobin 31.5 pg (28.0-32.0); Mean Corpuscular Volume 93.2 fL (80.0-100.0); Nucleated Red Blood Cells % 0.0 %
[2025-01-15 01:53] LABS: Chloride 104 mmol/L (98-107); Potassium 4.0 mmol/L (3.5-5.1); Sodium 141 mmol/L (136-145)
[2025-01-15 01:54] LABS: Anion Gap 9 (5-15); Calcium 9.2 mg/dL (8.7-10.4); Carbon Dioxide 28 mmol/L (20-31)
--- NOTE | 2025-01-15 01:54 | DVH ---
Exam: CT CT AB PEL WO CON-NO ORAL OR IV History: Bilateral flank and abdominal pain Comparison Study: CT ABD PELVIS WO CONTRAST on DOS: 03/17/22, CT ABD PELVIS WO CONTRAST on DOS: 03/25 Technique: Multidetector spiral CT of the abdomen was performed from lung bases to pubic symphysis. I maging was performed without IV contrast. Axial, coronal and sagittal multiplanar reformats were obta ined from the axial data set by the technologist. Radiation dose : 1. Abdomen/Pelvis: CTDIvol 26.65 mGy, DLP 1638.94 mGy*cm. Findings: Evaluation of solid organs is limited due to lack of intravenous contrast use. Lung Bases: No acute or significant lung base finding. Normal heart size. No pleural or pericardial effusion. Liver: The liver is normal in size. No focal lesions. Gallbladder and biliary Tree: Gallbladder is surgically absent. Spleen: Unremarkable Pancreas: The pancreas is grossly normal in appearance. Adrenal Glands: Unremarkable Kidneys: Kidneys are grossly normal without calculi or hydronephrosis. Bladder: Grossly unremarkable for degree of distention. Bowel: The stomach is grossly normal in appearance. Small bowel and colon are normal in caliber and d istribution. The appendix is not visualized; however, no secondary findings of acute appendicitis tiesha ntified. Ascites: Absent Lymphadenopathy: No mesenteric, retroperitoneal or periportal lymphadenopathy. Abdominal wall and Mesentery: Unremarkable. Vasculature: The visualized abdominal aorta is normal in size and caliber. Evaluation of abdominal a nd pelvic vessels is limited due to lack of intravenous contrast. Pelvic Organs: Unremarkable Musculoskeletal: No aggressive focal bony lesions, acute fractures or dislocation. IMPRESSION: 1. No acute abdominal or pelvic findings. Radiation optimization: All CT scans at this facility use at least one of these dose optimization rogelio hniques: automated exposure control mA and/or kV adjustment per patient size (includes targeted exam s where dose is matched to clinical indication) or iterative reconstruction.
[2025-01-15 01:59] LABS: BUN/Creatinine Ratio 10.5 (10.0-20.0); Blood Urea Nitrogen 11 mg/dL (9-23)
[2025-01-15 02:02] LABS: Glucose 179 mg/dL (74-106)
[2025-01-15 02:33] VITALS: BP 149/89; TEMP 97.6
[2025-01-15] MEDS: METOCLOPRAMIDE HCL 5MG/ml INJ 2ml VIAL IM ONE (02:33)
[2025-01-15] MEDS: OXYCODONE W/ ACETAMINOPHEN 5/325MG TABLET PO ONE (02:33)
[2025-01-15] MEDS: PROMETHAZINE-DM 5 ML ORAL SYRUP PO ONE (02:36)
[2025-01-15 02:40] VITALS: PULSE 74; RESP 18; O2SAT 96
[2025-01-15 02:46] LABS: Urine Protein, UAD Negative (Negative)
[2025-01-15] MEDS ORDERED: METO-281 PO (02:55)
== END 2025-01-15 03:04 | disposition home or self-care (01) ==
LOC: ER 00:52
DX: G89.29 Other chronic pain (principal); M54.9 Dorsalgia, unspecified; R11.2 Nausea with vomiting, unspecified; R42 Dizziness and giddiness; F41.9 Anxiety disorder, unspecified; I11.0 Hypertensive heart disease with heart failure; I50.9 Heart failure, unspecified; M19.90 Unspecified osteoarthritis, unspecified site; Z90.49 Acquired absence of other specified parts of digestive tract; Z98.51 Tubal ligation status; Z98.890 Other specified postprocedural states; Z79.52 Long term (current) use of systemic steroids; Z79.84 Long term (current) use of oral hypoglycemic drugs; Z79.891 Long term (current) use of opiate analgesic; Z79.899 Other long term (current) drug therapy
CPT/HCPCS: 36415; 74176; 80048; 81001; 85025; 96372; 99285; J2765